=== PATIENT | female | born 1930 | race Caucasian/White ===

== ENCOUNTER 2016-05-09 09:59 | Inpatient (IN) ==
--- NOTE | 2016-05-09 10:22 | Emergency Department Note ---
Disposition Clinical Impression: Weakness, SARAHY (acute kidney injury) Failure to thrive Qualifiers: Failure to thrive age range: in adult Qualified Code(s): R62.7 - Adult failure to thrive Disposition: Admitted As Inpatient Condition: Fair Dizziness HPI - General Chief Complaint: ED Dizziness Stated Complaint: Dizzy, side pain Time Seen by Provider: 05/09/16 10:09 Source: patient Limitations: no limitations Nursing Notes Reviewed: Yes Vital Signs Reviewed: Yes - History of Present Illness HPI Narrative: 86-year-old female is brought to the emergency department for a chief complaint of dizziness and general malaise. The patient states for the past 2 days, she has felt dizzy upon standing, as well as experiencing generalized weakness and malaise. She states "I just do not feel good". The patient also complains of some right upper quadrant pain. The patient's family member in the room states that the patient is currently undergoing chemotherapy for pancreatic cancer. The patient's oncologist is Dr. Calabrese, here at the [facility]. The patient states that she has had a noticeably decreased oral intake over the past 3 days. She denies any fevers or chills. She denies any nausea or vomiting. She denies any diarrhea, however admits to being constipated. She states she has not had a bowel movement in 2 days and this is not normal for her. She denies any generalized myalgias. Pt Subjective Complaint: dizziness, weakness Onset (ago): day(s) (3) Timing: gradual onset Improves with: nothing Worsens with: nothing - Related Data Home Medications Medication Instructions Recorded Confirmed Aspirin 81 mg PO DAILY 03/18/16 05/09/16 Citalopram [CeleXA] 20 mg PO DAILY 03/18/16 05/09/16 Levothyroxine [Synthroid] 88 mcg PO DAILY 03/18/16 05/09/16 Metformin [Glucophage] 500 mg PO BID 03/18/16 05/09/16 Omeprazole [PriLOSEC] 40 mg PO DAILY 03/18/16 05/09/16 Pravastatin Sodium [Pravachol] 40 mg PO DAILY 03/18/16 05/09/16 Docusate [Colace] 100 mg PO DAILY PRN 05/09/16 05/09/16 Hydrochlorothiazide 12.5 mg PO Q48H 05/09/16 05/09/16 Loratadine [Claritin] 10 mg PO DAILY 05/09/16 05/09/16 Multivit-Min/Iron/Folic/Lutein 1 tab PO DAILY 05/09/16 05/09/16 [Centrum Silver Women Tablet] Previous Rx's Medication Instructions Recorded Lisinopril [Zestril] 20 mg PO DAILY #30 tablet 03/24/16 Ondansetron ODT [Zofran ODT] 4 mg SL Q6HR PRN #15 tab.rapdis 03/24/16 OxyCODONE Immed Rel [Roxicodone 5 5 mg PO Q6HR PRN #25 tablet 03/24/16 MG] Promethazine [Phenergan] 12.5 mg PO Q6HR PRN #30 tablet 03/24/16 Ondansetron HCl [Zofran] 4 mg PO Q6H PRN #30 tablet 04/11/16 Prochlorperazine Maleate 10 mg PO Q6HR #30 tablet 04/11/16 [Compazine] Allergies Allergy/AdvReac Type Severity Reaction Status Date / Time No Known Allergies Allergy Verified 03/28/16 07:55 All systems ED: reviewed and negative except as stated. Constitutional: Denies: fever, chills, weakness, weight change Cardiovascular: Denies: chest pain, palpitations, dyspnea on exertion, edema, syncope Respiratory: Denies: cough, dyspnea, wheezes, hemoptysis, stridor Gastrointestinal: Reports: as per HPI, abdominal pain. Denies: nausea, vomiting , diarrhea, constipation, hematemesis, melena, hematochezia Genitourinary: Denies: dysuria, frequency, hematuria, discharge Musculoskeletal: Denies: back pain, neck pain, arthralgia, myalgia Integumentary: Denies: rash, abrasion, lesions Neurological: Reports: as per HPI, weakness. Denies: headache, numbness, paresthesias, confusion, abnormal gait Psychiatric: Denies: anxiety, depression, suicidal thoughts, homicidal thoughts , auditory hallucinations, visual hallucinations Endocrine: Reports: as per HPI, fatigue. Denies: heat or cold intolerance, polydipsia, polyuria, other Past Medical History - Past Medical History Attestation: Yes The following information was validated with the patient. Source: patient Medical history: Reports: cancer, diabetes, GERD, hyperlipidemia, hypertension, thyroid disease, other Surgical history: Reports: no surgical history Psychiatric history: Reports: anxiety, depression - Social History Smoking Status: Never smoker Smokeless Tobacco Status: No Alcohol use: Reports: none Drug use: Reports: none Physical Exam - General Limitations: no limitations General appearance: alert, in no apparent distress - Head Head exam: atraumatic, normocephalic, normal inspection - Eye Eye exam: Present: normal appearance, PERRL, EOMI - ENT ENT exam: mucous membranes dry - Neck Neck exam: Present: normal inspection, full ROM, trachea midline. Absent: lymphadenopathy - Chest Chest inspection: Present: normal inspection, symmetric chest wall rise - Respiratory Respiratory exam: Present: normal lung sounds bilaterally. Absent: respiratory distress, wheezes, stridor, accessory muscle use, prolonged expiratory phase - Cardiovascular Cardiovascular exam: Present: regular rate, normal rhythm, normal heart sounds - Abdominal Exam Abdominal exam: Present: soft, Non-Tender, tenderness, normal bowel sounds. Absent: distention, guarding, rebound, rigidity Abdominal tenderness: Present: LLQ, mild - Extremities Exam Extremities exam: Present: normal inspection, full ROM. Absent: tenderness, pedal edema - Neurological Exam Neurological exam: Present: alert, oriented X3 - Psychiatric Psychiatric exam: Present: normal affect, normal mood - Skin Skin exam: Present: warm, dry, intact, normal color. Absent: rash, cyanosis, diaphoresis, erythema, pallor, mottled Course Vital Signs Temperature 98.2 F 05/09/16 10:03 Pulse Rate 113 05/09/16 10:03 Respiratory Rate 18 05/09/16 10:03 Blood Pressure 85/50 05/09/16 10:03 O2 Sat by Pulse Oximetry 98 05/09/16 10:03 Temperature 98.2 F 05/09/16 10:03 Pulse Rate 78 05/09/16 12:38 Respiratory Rate 16 05/09/16 12:48 Blood Pressure 112/48 05/09/16 12:48 O2 Sat by Pulse Oximetry 99 05/09/16 12:38 Oxygen Delivery Oxygen Delivery Room Air Dizziness - Lab Data Result diagrams: 05/09/16 10:35 05/09/16 10:35 Lab Results 05/09/16 05/09/16 05/09/16 Range/Units 10:35 10:35 10:35 WBC 11.2 H (4.3-11.1) K/mcL RBC 3.16 L (3.82-4.97) M/mcL Hgb 9.7 L (11.5-15.4) g/dL Hct 28.7 L (35.3-44.9) % MCV 90.8 (83.0-100.0) fL MCH 30.7 (28.0-33.3) pg MCHC 33.8 (31.6-35.5) g/dL RDW 14.8 H (11.5-14.5) % Plt Count 133 L (140-400) K/mcL MPV 10.1 (9.4-12.4) fL Immature Gran % 0.5 (0-4) % Seg Neutrophils % 83.0 % Lymphocytes % 9.5 % Monocytes % 6.9 % Eosinophils % 0.0 % Basophils % 0.1 % Neutrophils # 9.3 H (1.6-8.9) K/mcL Lymphocytes # 1.1 (0.6-4.6) K/mcL Monocytes # 0.8 (0.0-1.3) K/mcL Eosinophils # 0.0 (0.0-0.6) K/mcL Basophils # 0.0 (0.0-0.2) K/mcL PT 16.5 H (9.4-12.1) Seconds INR 1.5 Sodium 131 L (136-145) mEq/L Potassium 4.3 (3.5-4.5) mEq/L Chloride 98 (98-109) mEq/L Carbon Dioxide 20 (19-29) mEq/L BUN 22 H (7-20) mg/dL Creatinine 1.30 H (0.57-1.11) mg/dL Est GFR ( Amer) 47 L (> 60) Est GFR (Non-Af Amer) 39 L (> 60) BUN/Creatinine Ratio 17 (6-26) Glucose 224 H (70-99) mg/dL Calculated Osmolality 282 (280-300) Calcium 9.2 (8.6-10.8) mg/dL Troponin I (0-0.03) ng/mL 05/09/16 Range/Units 10:35 WBC (4.3-11.1) K/mcL RBC (3.82-4.97) M/mcL Hgb (11.5-15.4) g/dL Hct (35.3-44.9) % MCV (83.0-100.0) fL MCH (28.0-33.3) pg MCHC (31.6-35.5) g/dL RDW (11.5-14.5) % Plt Count (140-400) K/mcL MPV (9.4-12.4) fL Immature Gran % (0-4) % Seg Neutrophils % % Lymphocytes % % Monocytes % % Eosinophils % % Basophils % % Neutrophils # (1.6-8.9) K/mcL Lymphocytes # (0.6-4.6) K/mcL Monocytes # (0.0-1.3) K/mcL Eosinophils # (0.0-0.6) K/mcL Basophils # (0.0-0.2) K/mcL PT (9.4-12.1) Seconds INR Sodium (136-145) mEq/L Potassium (3.5-4.5) mEq/L Chloride (98-109) mEq/L Carbon Dioxide (19-29) mEq/L BUN (7-20) mg/dL Creatinine (0.57-1.11) mg/dL Est GFR ( Amer) (> 60) Est GFR (Non-Af Amer) (> 60) BUN/Creatinine Ratio (6-26) Glucose (70-99) mg/dL Calculated Osmolality (280-300) Calcium (8.6-10.8) mg/dL Troponin I 0.01 (0-0.03) ng/mL S.B.A.R. - S.B.A.R. Transition of Care: I have discussed this patient's case with Dr. Grant. At this time, Dr. Grant will assume care of this patient due to the mid-level shift change. Situation: Demographics, MOA Background: Presenting Complaint, Relevant PMH, Meds, & Allergies Assessment: Vital Signs, Course and respsone to treatment, Exam Concerns, Patient/Family Expectation, Pertinant Lab Results, Outstanding Labs Recommendation: Barrier(s) to disposition, Recommendation based on pending studies, treatments, or consults S.B.A.R. Report Given to: Dr. Grant S.B.A.R. Repor Time: 11:00
[2016-05-09] MEDS ORDERED: 0.9 % Sodium Chloride 500 ML IVC ONE (10:26)
[2016-05-09 10:43] LABS: Basophils % 0.1 %; Hematocrit 28.7 % (35.3-44.9); Hemoglobin 9.7 g/dL (11.5-15.4); Immature Granulocytes % 0.5 % (0-4); Lymphocytes # 1.1 K/mcL (0.6-4.6); Lymphocytes % 9.5 %; Mean Corpuscular HGB Conc 33.8 g/dL (31.6-35.5); Mean Corpuscular Hemoglobin 30.7 pg (28.0-33.3); Mean Corpuscular Volume 90.8 fL (83.0-100.0); Mean Platelet Volume 10.1 fL (9.4-12.4); Monocytes # 0.8 K/mcL (0.0-1.3); Monocytes % 6.9 %; Neutrophils # 9.3 K/mcL (1.6-8.9); Platelet Count 133 K/mcL (140-400); Red Blood Count 3.16 M/mcL (3.82-4.97); Red Cell Distribution Width 14.8 % (11.5-14.5)
[2016-05-09 10:55] LABS: Calcium 9.2 mg/dL (8.6-10.8); Potassium 4.3 mEq/L (3.5-4.5)
[2016-05-09 10:57] LABS: INR 1.5; Prothrombin Time 16.5 Seconds (9.4-12.1)
--- NOTE | 2016-05-09 11:15 | Emergency Department Note ---
START Narrative - START START: I examined this patient and my medical decision-making was reviewed with the PULPER OPERATOR/PA/Advanced Practice Nurse/Resident Physician. I agree with the documented findings, disposition and treatment plan as described except to the extent set forth below. ED attending note: Patient seen with emergency medicine resident Dr. Mixon. We independently evaluated the patient. We independently had [id number] contact with the patient. Please see a copy of his note for details of the history and physical, evaluation, management and disposition of this emergency Department patient. Briefly: A 86-year-old female diagnosed with stage II pancreatic cancer. Patient declines surgical procedure. Patient is getting palliative care at [facility]. His been feeling tired for the past week or so. She spell. Hemoglobin is only 9.6 and not a big drops and she last got transfused in March. Results of the x-rays and urinalysis. Due to the patient's weakness and weight loss patient will be admitted for failure to thrive. Disposition pending. Patient stable.
--- NOTE | 2016-05-09 11:17 | Emergency Department Note ---
Disposition Clinical Impression: Weakness, SARAHY (acute kidney injury) Failure to thrive Qualifiers: Failure to thrive age range: in adult Qualified Code(s): R62.7 - Adult failure to thrive Disposition: Admitted As Inpatient Condition: Fair Time of Disposition: 11:59 General Adult HPI - General Chief complaint: ED Dizziness Stated complaint: Dizzy, side pain Time Seen by Provider: 05/09/16 10:09 Source: patient Limitations: no limitations - History of Present Illness Pain Scale: 6 - Related Data Home Medications Medication Instructions Recorded Confirmed Aspirin 81 mg PO DAILY 03/18/16 05/09/16 Citalopram [CeleXA] 20 mg PO DAILY 03/18/16 05/09/16 Levothyroxine [Synthroid] 88 mcg PO DAILY 03/18/16 05/09/16 Metformin [Glucophage] 500 mg PO BID 03/18/16 05/09/16 Omeprazole [PriLOSEC] 40 mg PO DAILY 03/18/16 05/09/16 Pravastatin Sodium [Pravachol] 40 mg PO DAILY 03/18/16 05/09/16 Docusate [Colace] 100 mg PO DAILY PRN 05/09/16 05/09/16 Hydrochlorothiazide 12.5 mg PO Q48H 05/09/16 05/09/16 Loratadine [Claritin] 10 mg PO DAILY 05/09/16 05/09/16 Multivit-Min/Iron/Folic/Lutein 1 tab PO DAILY 05/09/16 05/09/16 [Centrum Silver Women Tablet] Previous Rx's Medication Instructions Recorded Lisinopril [Zestril] 20 mg PO DAILY #30 tablet 03/24/16 Ondansetron ODT [Zofran ODT] 4 mg SL Q6HR PRN #15 tab.rapdis 03/24/16 OxyCODONE Immed Rel [Roxicodone 5 5 mg PO Q6HR PRN #25 tablet 03/24/16 MG] Promethazine [Phenergan] 12.5 mg PO Q6HR PRN #30 tablet 03/24/16 Ondansetron HCl [Zofran] 4 mg PO Q6H PRN #30 tablet 04/11/16 Prochlorperazine Maleate 10 mg PO Q6HR #30 tablet 04/11/16 [Compazine] Allergies Allergy/AdvReac Type Severity Reaction Status Date / Time No Known Allergies Allergy Verified 03/28/16 07:55 Constitutional: Denies: fever, chills, weakness, weight change Cardiovascular: Denies: chest pain, palpitations, dyspnea on exertion, edema, syncope Respiratory: Denies: cough, dyspnea, wheezes, hemoptysis, stridor Gastrointestinal: Reports: as per HPI, abdominal pain. Denies: nausea, vomiting , diarrhea, constipation, hematemesis, melena, hematochezia Genitourinary: Denies: dysuria, frequency, hematuria, discharge Musculoskeletal: Denies: back pain, neck pain, arthralgia, myalgia Integumentary: Denies: rash, abrasion, lesions Neurological: Reports: as per HPI, weakness. Denies: headache, numbness, paresthesias, confusion, abnormal gait Psychiatric: Denies: anxiety, depression, suicidal thoughts, homicidal thoughts , auditory hallucinations, visual hallucinations Endocrine: Reports: as per HPI, fatigue. Denies: heat or cold intolerance, polydipsia, polyuria, other Past Medical History - Past Medical History Medical history: Reports: cancer, diabetes, GERD, hyperlipidemia, hypertension, thyroid disease, other Surgical history: Reports: no surgical history Psychiatric history: Reports: anxiety, depression - Social History Smoking Status: Never smoker Smokeless Tobacco Status: No Alcohol use: Reports: none Drug use: Reports: none Physical Exam - General Limitations: no limitations General appearance: alert, in no apparent distress Course - Reevaluation(s) Reevaluation #1: 86-year-old female presents to the emergency department for progressive weakness and failure to thrive. Patient has a history of pancreatic cancer currently on palliative chemotherapy. Family states that the patient has not been eating and has had progressive weight loss over the past few months but has gotten recently worse over the past week. This state that the patient has not been eating or drinking. States that she has been having trouble with bowel movements and states that this is somewhat related to her diagnosis of pancreatic cancer. Currently the patient states she feels weak and dizzy. Labs show worsening creatinine which is up 1.3. Chest x-ray and urinalysis pending. Patient be admitted for further evaluation and palliative care. Time: 11:17 Reevaluation #2: Discussed case with hospitalist service. Patient accepted for further evaluation and treatment. Time: 11:58 Vital Signs Temperature 98.2 F 05/09/16 10:03 Pulse Rate 113 05/09/16 10:03 Respiratory Rate 18 05/09/16 10:03 Blood Pressure 85/50 05/09/16 10:03 O2 Sat by Pulse Oximetry 98 05/09/16 10:03 Temperature 98.2 F 05/09/16 10:03 Pulse Rate 78 05/09/16 12:38 Respiratory Rate 18 05/09/16 12:38 Blood Pressure 112/48 05/09/16 12:38 O2 Sat by Pulse Oximetry 99 05/09/16 12:38 Oxygen Delivery Oxygen Delivery Room Air Medical Decision Making - Medical Records Medical records reviewed: Yes I reviewed the patient's medical records. - Lab Data Lab results reviewed: Yes I reviewed the patient's lab results. Result diagrams: 05/09/16 10:35 05/09/16 10:35 Lab Results 05/09/16 05/09/16 05/09/16 Range/Units 10:35 10:35 10:35 WBC 11.2 H (4.3-11.1) K/mcL RBC 3.16 L (3.82-4.97) M/mcL Hgb 9.7 L (11.5-15.4) g/dL Hct 28.7 L (35.3-44.9) % MCV 90.8 (83.0-100.0) fL MCH 30.7 (28.0-33.3) pg MCHC 33.8 (31.6-35.5) g/dL RDW 14.8 H (11.5-14.5) % Plt Count 133 L (140-400) K/mcL MPV 10.1 (9.4-12.4) fL Immature Gran % 0.5 (0-4) % Seg Neutrophils % 83.0 % Lymphocytes % 9.5 % Monocytes % 6.9 % Eosinophils % 0.0 % Basophils % 0.1 % Neutrophils # 9.3 H (1.6-8.9) K/mcL Lymphocytes # 1.1 (0.6-4.6) K/mcL Monocytes # 0.8 (0.0-1.3) K/mcL Eosinophils # 0.0 (0.0-0.6) K/mcL Basophils # 0.0 (0.0-0.2) K/mcL PT 16.5 H (9.4-12.1) Seconds INR 1.5 Sodium 131 L (136-145) mEq/L Potassium 4.3 (3.5-4.5) mEq/L Chloride 98 (98-109) mEq/L Carbon Dioxide 20 (19-29) mEq/L BUN 22 H (7-20) mg/dL Creatinine 1.30 H (0.57-1.11) mg/dL Est GFR ( Amer) 47 L (> 60) Est GFR (Non-Af Amer) 39 L (> 60) BUN/Creatinine Ratio 17 (6-26) Glucose 224 H (70-99) mg/dL Calculated Osmolality 282 (280-300) Calcium 9.2 (8.6-10.8) mg/dL Troponin I (0-0.03) ng/mL 05/09/16 Range/Units 10:35 WBC (4.3-11.1) K/mcL RBC (3.82-4.97) M/mcL Hgb (11.5-15.4) g/dL Hct (35.3-44.9) % MCV (83.0-100.0) fL MCH (28.0-33.3) pg MCHC (31.6-35.5) g/dL RDW (11.5-14.5) % Plt Count (140-400) K/mcL MPV (9.4-12.4) fL Immature Gran % (0-4) % Seg Neutrophils % % Lymphocytes % % Monocytes % % Eosinophils % % Basophils % % Neutrophils # (1.6-8.9) K/mcL Lymphocytes # (0.6-4.6) K/mcL Monocytes # (0.0-1.3) K/mcL Eosinophils # (0.0-0.6) K/mcL Basophils # (0.0-0.2) K/mcL PT (9.4-12.1) Seconds INR Sodium (136-145) mEq/L Potassium (3.5-4.5) mEq/L Chloride (98-109) mEq/L Carbon Dioxide (19-29) mEq/L BUN (7-20) mg/dL Creatinine (0.57-1.11) mg/dL Est GFR ( Amer) (> 60) Est GFR (Non-Af Amer) (> 60) BUN/Creatinine Ratio (6-26) Glucose (70-99) mg/dL Calculated Osmolality (280-300) Calcium (8.6-10.8) mg/dL Troponin I 0.01 (0-0.03) ng/mL - Radiology Data Radiology results reviewed: Yes I reviewed the patient's radiology results. - EKG Data EKG #1 EKG attestation: Yes I reviewed and interpreted this EKG. EKG shows normal: sinus rhythm Rate: normal Rhythm: NSR [place]/QRS: normal Interpretation: no acute changes
--- NOTE | 2016-05-09 13:09 | Internal Med History&Physical ---
Date of Encounter: 05/09/16 Time of Encounter: 13:06 Assessment and Plan (1) Failure to thrive Current visit: Yes Status: Acute Patient with history of pancreatic cancer on Chemotherapy. Admitted Due To failure to thrive, subsequent Dehydration, SARAHY and Worsening Anemia. We Will Continue with IV Fluids, Symptomatic Therapy. We Will Obtain a Consultation with Our Oncology team for Further Recommendations. The Patient's CODE STATUS to DNR/DNI Comfort Care. Pain Control. DVT Prophylaxis. Aspiration Precautions. Monitor Kidney Function Tests and Hemoglobin Tomorrow in A.M. The Plan of Care Was Discussed in Detail with the Patient and her daughter who was at Bedside. Qualifiers: Failure to thrive age range: in adult Qualified Code(s): R62.7 - Adult failure to thrive (2) SARAHY (acute kidney injury) Current visit: Yes Status: Acute (3) Pancreatic cancer Current visit: Yes Status: Acute Qualifiers: Pancreatic malignancy location: unspecified Qualified Code(s): C25.9 - Malignant neoplasm of pancreas, unspecified (4) Anemia Current visit: No Status: Acute Qualifiers: Anemia type: unspecified type Qualified Code(s): D64.9 - Anemia, unspecified (5) DVT prophylaxis Current visit: No Status: Acute Internal Medicine - H&P: HPI Chief complaint: Generalized weakness, dizziness Admitted From: Emergency Dept Plans for Post Hospital Care: Home History of present illness: Ms. Montero is a 86 year old female past medical history diabetes, hypertension , GERD, hypothyroidism, pancreatic cancer diagnosed in March 2016. She is undergoing chemotherapy, her oncologist is Dr. Calabrese. The patient presented to our emergency department complaining of progressive weakness, dizziness, poor oral intake. She denies recent trauma, loss of consciousness, fever, chest pain , shortness of breath. She was seen and examined at bedside, her daughter was present during this encounter. She was initially evaluated in our emergency department, she was found to have a drop in her hemoglobin from 13.2-9.7, additionally some acute kidney injury. Her chest x-ray was essentially unremarkable. The patient was admitted for further management and workup. The patient states that her CODE STATUS is DNR/DNI comfort care. Past Med Surg Social Fam HX - Past Medical History Medical history: cancer, diabetes, GERD, hyperlipidemia, hypertension, thyroid disease, other Psychiatric history: anxiety, depression - Past Surgical History Surgical History: no surgical history - Social History Smoking Status: Never smoker Smokeless Tobacco Status: No Alcohol use: none Drug use: none - Family History Mother Hx Family Cardiac Disorders: Yes (stroke) Father Living Status: Internal Medicine - H&P: Meds Aspirin 81 mg PO DAILY 03/18/16 [History] Citalopram [CeleXA] 20 mg PO DAILY 03/18/16 [History] Levothyroxine [Synthroid] 88 mcg PO DAILY 03/18/16 [History] Metformin [Glucophage] 500 mg PO BID 03/18/16 [History] Omeprazole [PriLOSEC] 40 mg PO DAILY 03/18/16 [History] Pravastatin Sodium [Pravachol] 40 mg PO DAILY 03/18/16 [History] Lisinopril [Zestril] 20 mg PO DAILY #30 tablet 03/24/16 [Rx] Ondansetron ODT [Zofran ODT] 4 mg SL Q6HR PRN #15 tab.rapdis 03/24/16 [Rx] OxyCODONE Immed Rel [Roxicodone 5 MG] 5 mg PO Q6HR PRN #25 tablet 03/24/16 [Rx] Promethazine [Phenergan] 12.5 mg PO Q6HR PRN #30 tablet 03/24/16 [Rx] Ondansetron HCl [Zofran] 4 mg PO Q6H PRN #30 tablet 04/11/16 [Rx] Prochlorperazine Maleate [Compazine] 10 mg PO Q6HR #30 tablet 04/11/16 [Rx] Docusate [Colace] 100 mg PO DAILY PRN 05/09/16 [History] Hydrochlorothiazide 12.5 mg PO Q48H 05/09/16 [History] Loratadine [Claritin] 10 mg PO DAILY 05/09/16 [History] Multivit-Min/Iron/Folic/Lutein [Centrum Silver Women Tablet] 1 tab PO DAILY 09/17 [History] Allergies No Known Allergies Allergy (Verified 03/28/16 07:55) All Systems PM: A 10-system review of systems was performed and is negative for pertinent findings except as documented above in the HPI. - Constitutional Constitutional: anorexia, fatigue, lethargy, malaise, weight loss, no chills, no fever(s), no night sweats - EENT Eyes: as per HPI, no change in vision, no discharge, no pain, no photophobia Ears: as per HPI, no ear discharge, no ear pain, no tinnitus Nose, mouth and throat: as per HPI, no dysphagia, no nasal discharge, no neck pain, no sore throat - Breasts Breasts: as per HPI - Cardiovascular Cardiovascular ROS IM: as per HPI, no chest pain, no diaphoresis, no dyspnea, no lightheadedness, no palpitations, no syncope - Respiratory Respiratory: as per HPI, no cough, no dyspnea, no wheezing, no excessive phlegm production - Gastrointestinal Gastrointestinal: as per HPI, no abdominal pain, no diarrhea, no hematemesis, no hematochezia, no melena, no nausea, no vomiting - Genitourinary Genitourinary: as per HPI, no change in urinary stream, no dysuria, no flank pain, no hematuria Menstruation: as per HPI - Musculoskeletal Musculoskeletal ROS IM: as per HPI, no numbness, no tingling - Integumentary Integumentary IM: as per HPI, no rash, no unusual bruising - Neurological Neurological ROS: as per HPI, no confusion, no convulsions, no focal weakness, no numbness, no tingling, no tremor(s) - Psychiatric Psychiatric: as per HPI - Endocrine Endocrine IM: as per HPI - Hematologic/Lymphatic Hematologic/Lymphatic: as per HPI, no easy bruising - Allergic/Immunologic Allergic/Immunologic: as per HPI - Constitutional Vitals: Temp Pulse Resp BP Pulse Ox 98.2 F 78 16 112/48 99 05/09/16 10:03 05/09/16 12:38 05/09/16 12:48 05/09/16 12:48 05/09/16 12:38 General appearance: Present: A&O X 3, pleasant, underweight - Head Head exam: Present: atraumatic, normocephalic - Eye Eye exam: Present: PERRL, scleral icterus, conjuntiva pink Pupils: Present: PERRL - Neck Neck exam general surgery: Present: supple, trachea midline. Absent: lymphadenopathy - Respiratory Respiratory exam: Present: CTAB. Absent: accessory muscle use, rales, rhonchi, wheezes - Cardiovascular Cardiovascular exam: Present: RRR, +S1, +S2. Absent: diastolic murmur, gallop, rubs, systolic murmur - GI/Abdominal GI/Abdominal exam: Present: normal bowel sounds, soft, no peritoneal signs. Absent: distended, tenderness - Extremities Exam Extremities exam: Present: warm, radial pulses palpable and symetrical. Absent : calf tenderness, cyanotic, pedal edema - Neurological Exam Neurological exam: Present: CN II-XII intact, oriented X3, no focal deficits. Absent: pronater drift, facial droop, speech deficit - Skin Skin exam: Present: dry, intact Internal Med - H&P Results - Labs CBC & Chem 7: 05/09/16 10:35 05/09/16 10:35
[2016-05-09] MEDS ORDERED: Naloxone 0.4 MG/ML INJ IVP PRN (13:21)
[2016-05-09] MEDS ORDERED: *HR* Morphine 2 MG/ML SYRINGE IVP PRN (13:21)
[2016-05-09] MEDS ORDERED: *HR* HYDROcodone/Acet 5/325 mg TABLET PO PRN (13:21)
[2016-05-09] MEDS ORDERED: Acetaminophen 325 MG TABLET PO PRN (13:21)
[2016-05-09] MEDS ORDERED: Ondansetron 4 MG/2 ML VIAL IVP PRN (13:21)
[2016-05-09] MEDS: Ringers Solution, Lactated 1,000 ML IVC SCH (13:59)
--- NOTE | 2016-05-09 18:15 | Oncology Inp Consult Note ---
Date of Encounter: 05/09/16 Time of Encounter: 16:00 - Data of Consult Requesting Physician: Barbara Quispe Primary Care Provider: Chaz Puckett - Consult Narrative Reason for consult: Pancreatic cancer History of present illness: Ms. Montero is a 86 year old female with history of pancreatic cancer, admitted today with symptoms of poor oral intake, weakness, pain in the lower back and failure to thrive. Daughter at the bedside reports that her last chemotherapy was about 10 days ago and she has tolerated it well. She has not had any nausea or vomiting but has had chronic anorexia resulting in poor by mouth intake. The daughter does report that the patient is able to drink water and keep it down. Oncology has been consulted for her history of pancreatic cancer. Her oncologic history dates back to March 2016 when she was noted to have hyperbilirubinemia and elevated liver function tests. Imaging showed a lesion at the head of the pancreas. She underwent endoscopy, ERCP with stent placement which was later internalized. Patient was evaluated at [facility] and since she was not a surgical candidate, although the tumor was resectable, the recommendation was to consider palliative versus neoadjuvant chemotherapy followed by evaluation. She has been started on gemcitabine every other week and may have received about 1-2 doses so far. Imaging was to be obtained after 3-4 cycles of treatment. Her other medical problems include diabetes mellitus, hypertension, GERD, thyroid disorder. The patient today reported that she has been doing better. The pain in the lower back is also better. She had been taking Aleve at home. Assessment and plan: Pancreatic adenocarcinoma: Clinically resectable but due to comorbidities and nutritional status, the patient is not a surgical candidate. She is getting palliative Gemzar and seems to be tolerating it well. We will proceed with imaging after about 3 cycles of chemotherapy. Agree with palliative care consult given the declining nutritional status and failure to thrive. Dehydration: The patient presented with acute kidney injury. She is receiving IV fluids. Anemia: Multifactorial and could be due to chemotherapy, underlying malignancy and chronic inflammation. Quadrant neuropathy: Elevation of PT and INR could be secondary to liver dysfunction. We will continue to monitor. Past Med Surg Social Fam HX - Past Medical History Medical history: cancer, diabetes, GERD, hyperlipidemia, hypertension, thyroid disease, other Psychiatric history: anxiety, depression - Past Surgical History Surgical History: no surgical history - Social History Smoking Status: Never smoker Smokeless Tobacco Status: No Alcohol use: none Drug use: none - Family History Mother Hx Family Cardiac Disorders: Yes (stroke) Father Living Status: Medications and Allergies Aspirin 81 mg PO DAILY 03/18/16 [History] Citalopram [CeleXA] 20 mg PO DAILY 03/18/16 [History] Levothyroxine [Synthroid] 88 mcg PO DAILY 03/18/16 [History] Metformin [Glucophage] 500 mg PO BID 03/18/16 [History] Omeprazole [PriLOSEC] 40 mg PO DAILY 03/18/16 [History] Pravastatin Sodium [Pravachol] 40 mg PO DAILY 03/18/16 [History] Lisinopril [Zestril] 20 mg PO DAILY #30 tablet 03/24/16 [Rx] Ondansetron ODT [Zofran ODT] 4 mg SL Q6HR PRN #15 tab.rapdis 03/24/16 [Rx] OxyCODONE Immed Rel [Roxicodone 5 MG] 5 mg PO Q6HR PRN #25 tablet 03/24/16 [Rx] Promethazine [Phenergan] 12.5 mg PO Q6HR PRN #30 tablet 03/24/16 [Rx] Ondansetron HCl [Zofran] 4 mg PO Q6H PRN #30 tablet 04/11/16 [Rx] Prochlorperazine Maleate [Compazine] 10 mg PO Q6HR #30 tablet 04/11/16 [Rx] Docusate [Colace] 100 mg PO DAILY PRN 05/09/16 [History] Hydrochlorothiazide 12.5 mg PO Q48H 05/09/16 [History] Loratadine [Claritin] 10 mg PO DAILY 05/09/16 [History] Multivit-Min/Iron/Folic/Lutein [Centrum Silver Women Tablet] 1 tab PO DAILY 09/17 [History] Allergies No Known Allergies Allergy (Verified 03/28/16 07:55) Constitutional: Present: anorexia, daytime sleepiness, lethargy, malaise, weakness, weight loss Eyes: Present: blurry vision Cardiovascular: Present: edema, palpitations Respiratory: Present: cough, dyspnea Gastrointestinal: Present: early satiety Oncology - Exam - Constitutional Vitals: Temp Pulse Resp BP Pulse Ox 97.7 F 78 16 104/52 96 02/06/17 13:40 05/09/16 13:40 05/09/16 13:40 05/09/16 13:40 05/09/16 13:40 General appearance: cooperative, mild distress, thin - Head Head exam: Present: atraumatic, normal inspection, normocephalic - Eye Eye exam: Present: EOMI, PERRL - ENT ENT exam: Present: mucous membranes dry, normal oropharynx - Neck Neck exam: Present: full ROM - Respiratory Respiratory exam: Present: decreased breath sounds - Cardiovascular Cardiovascular exam: Present: RRR, +S1, +S2 - GI/Abdominal GI/Abdominal exam: Present: diminished bowel sounds, firm, normal bowel sounds - Extremities Exam Extremities exam: Present: normal inspection - Neurological Exam Neurological exam: Present: alert, altered, oriented X3, no focal deficits Consult Discharge Plan - Plan Referrals: Chaz Puckett DO [Primary Care Provider] -
[2016-05-09] MEDS: *HR* Heparin 5,000 UNIT/ML VIAL SQ SCH (18:46)
[2016-05-09] MEDS: Famotidine 20 MG/2 ML VIAL IVP SCH (18:46)
[2016-05-10] MEDS: Ringers Solution, Lactated 1,000 ML IVC SCH (00:30)
[2016-05-10 01:44] LABS: Bilirubin,Urine Large (Negative); Blood,Urine Negative (Negative); Clarity,Urine Cloudy (Clear); Color,Urine Orange (Yellow); Glucose,Urine (UA) 100 mg/dL (Normal); Ketones,Urine Negative (Negative); Leukocyte Esterase,Urine Small (Negative); Nitrite,Urine Negative (Negative); PH,Urine 5.5 pH Units (5.0-8.0); Protein,Urine 30 mg/dL (Neg-Trace); Specific Gravity,Urine 1.019 (1.010-1.025)
[2016-05-10 01:47] LABS: Hyaline Casts,Urine Few per lpf (None-Few); Squamous Epithelial Cell,Urine Many per lpf (None-Few)
[2016-05-10 02:00] LABS: Mucus,Urine Few (Few); RBC,Urine 0-3 per hpf (0-3)
[2016-05-10 02:01] LABS: Bacteria,Urine Moderate per hpf (None-Few); Oval Fat Bodies,Urine Present (Not Present)
[2016-05-10] MEDS: *HR* Heparin 5,000 UNIT/ML VIAL SQ SCH ×2 (06:12→23:07)
[2016-05-10] MEDS: Famotidine 20 MG/2 ML VIAL IVP SCH ×2 (06:18→18:50)
[2016-05-10 06:50] LABS: Hematocrit 26.5 % (35.3-44.9); Hemoglobin 8.7 g/dL (11.5-15.4); Mean Corpuscular HGB Conc 32.8 g/dL (31.6-35.5); Mean Corpuscular Hemoglobin 30.1 pg (28.0-33.3); Mean Corpuscular Volume 91.7 fL (83.0-100.0); Mean Platelet Volume 10.2 fL (9.4-12.4); Platelet Count 121 K/mcL (140-400); Red Blood Count 2.89 M/mcL (3.82-4.97)
[2016-05-10 07:06] LABS: BUN/Creatinine Ratio 19 (6-26); Blood Urea Nitrogen 19 mg/dL (7-20); Calcium 8.5 mg/dL (8.6-10.8); Carbon Dioxide 22 mEq/L (19-29); Chloride 100 mEq/L (98-109); Glucose 128 mg/dL (70-99); Magnesium 0.8 mg/dL (1.6-2.6); Osmolality,Calculated 276 (280-300); Sodium 131 mEq/L (136-145); eGFR For African Americans > 60 (> 60); eGFR For Non-African Americans 54 (> 60)
[2016-05-10] MEDS: Aspirin 81 MG TAB.CHEW PO SCH (07:58)
[2016-05-10 08:16] LABS: Lymphocytes # 0.8 K/mcL (0.6-4.6); Monocytes # 0.6 K/mcL (0.0-1.3); Neutrophils # 6.3 K/mcL (1.6-8.9)
[2016-05-10 08:17] LABS: Platelet Estimate Normal (Normal)
--- NOTE | 2016-05-10 11:18 | Palliative - Consult Note ---
Date of Encounter: 05/10/16 Time of Encounter: 10:30 - Assessment and Plan (1) SARAHY (acute kidney injury) Current Visit: Yes Status: Acute Assessment and plan: Improving continue to watch, urine appears to be contaminated. (2) Failure to thrive Current Visit: Yes Status: Acute Assessment and plan: Discussed with patient about eating. We will put in a palliative consult to dietary, will try Megace, consider mirtazapine but the patient's already on Celexa. Even that the patient's problem with eating is that food does not taste good i had doubt that medications will make much difference. The patient did allow me to put in a consult to dietary E if there is anything they may be over marcie stevenson Qualifiers: Failure to thrive age range: in adult Qualified Code(s): R62.7 - Adult failure to thrive (3) Goals of care, counseling/discussion Current Visit: Yes Status: Acute Assessment and plan: The patient is currently DNR comfort care, no changes anticipated his goals of care she does wish to continue chemotherapy or her pancreatic cancer. She does understand that this is palliative in nature. She does not wish to discuss hospice at this time. We will follow from a distance as the patient's pain is well-controlled at this time whether we will also try some Megace for appetite. I did note to the patient that it will not in all likelihood change how things taste, and that is the major problem therefore leave this is worth a try but may not be too successful. (4) Pancreatic cancer Current Visit: Yes Status: Acute Assessment and plan: She reports that cancer related pain is under good control, she wishes to continue full aggressive care. She was offered an opportunity to have a rest from it for a short period of time she told Dr. Xuan stevenson that she wanted to continue to get her chemotherapy aggressively. To have no break. Qualifiers: Pancreatic malignancy location: unspecified Qualified Code(s): C25.9 - Malignant neoplasm of pancreas, unspecified (5) Constipation Current Visit: Yes Status: Acute Assessment and plan: The patient reports no bowel movement in several days. We will go ahead and start senna plus Dulcolax suppositories as needed and continue to watch. Qualifiers: Constipation type: slow transit constipation Qualified Code(s): K59.01 - Slow transit constipation Palliative-CN HPI - Data of Consult Patient: new to practice Requesting Physician: Caesar Ivy MD Primary Care Provider: Chaz Puckett - Consult Narrative Palliative Care/Comfort Measures: Palliative care Reason for consult: Goals of care, History of present illness: Ms. Montero is a 86 year old female History of cancer discovered in March of last year. Patient was admitted for weakness dizziness and poor oral intake. She was found to have a drop in her hemoglobin from 13 to data 9.7 and some kidney injury. Chest x-ray was unremarkable and patient Wishes DNR comfort care. Patient does describe the pain that she had initially as being a very deep ache that radiated across the upper part of her abdomen. And when this was diagnosed back in March it was felt that it was possibly due to gallstones. Relief diagnosed with pancreatic cancer and has been undergoing treatment for it since. Patient states she has been having trouble with her appetite since before the diagnosis was made, with that with food tasting like cardboard. She states that since food does not have any good taste she does not feel any real need to eat. He states the medications are working well for her pain and she feels that it is under good control. Since she has been able to tolerate her chemotherapy and feels that it is helping her and she wishes to continue with it. At its worst the pain is rated as a 7-8/10 which again is well controlled with medications. It is across the upper part of her abdomen and radiates all the way across. Nothing in particular provokes or relieves it. It lasts for a few minutes and then goes away but at times it can last for hours. Do help. There are no associated signs or symptoms with it specifically no nausea vomiting or diarrhea. Although at times she does have some trouble with nausea. CC: Casear vIy MD Weakness, no appetite Past Med Surg Social Fam HX - Past Medical History Medical history: cancer, diabetes, GERD, hyperlipidemia, hypertension, thyroid disease, other Psychiatric history: anxiety, depression - Past Surgical History Surgical History: no surgical history - Social History Smoking Status: Never smoker Smokeless Tobacco Status: No Alcohol use: none Drug use: none - Family History Mother Hx Family Cardiac Disorders: Yes (stroke) Father Living Status: Medications and Allergies Aspirin 81 mg PO DAILY 03/18/16 [History] Citalopram [CeleXA] 20 mg PO DAILY 03/18/16 [History] Levothyroxine [Synthroid] 88 mcg PO DAILY 03/18/16 [History] Metformin [Glucophage] 500 mg PO BID 03/18/16 [History] Omeprazole [PriLOSEC] 40 mg PO DAILY 03/18/16 [History] Pravastatin Sodium [Pravachol] 40 mg PO DAILY 03/18/16 [History] Lisinopril [Zestril] 20 mg PO DAILY #30 tablet 03/24/16 [Rx] Ondansetron ODT [Zofran ODT] 4 mg SL Q6HR PRN #15 tab.rapdis 03/24/16 [Rx] OxyCODONE Immed Rel [Roxicodone 5 MG] 5 mg PO Q6HR PRN #25 tablet 03/24/16 [Rx] Promethazine [Phenergan] 12.5 mg PO Q6HR PRN #30 tablet 03/24/16 [Rx] Ondansetron HCl [Zofran] 4 mg PO Q6H PRN #30 tablet 04/11/16 [Rx] Prochlorperazine Maleate [Compazine] 10 mg PO Q6HR #30 tablet 04/11/16 [Rx] Docusate [Colace] 100 mg PO DAILY PRN 05/09/16 [History] Hydrochlorothiazide 12.5 mg PO Q48H 05/09/16 [History] Loratadine [Claritin] 10 mg PO DAILY 05/09/16 [History] Multivit-Min/Iron/Folic/Lutein [Centrum Silver Women Tablet] 1 tab PO DAILY 09/17 [History] Allergies No Known Allergies Allergy (Verified 03/28/16 07:55) - Constitutional Constitutional ROS PAL: decreased appetite, anorexia, no chills, no fatigue - EENT Eyes: no dry eye, no loss of vision, no pain Ears: no ear discharge, no ear pain Ears, nose, mouth, throat: no facial pain, no hoarseness, no neck mass, no neck pain - Cardiovascular Cardiovascular ROS: no chest pain, no chest pain at rest - Respiratory Respiratory: no cough, no dyspnea, no hemoptysis - Gastrointestinal Gastrointestinal: constipation, no diarrhea, no nausea, no vomiting - Genitourinary Palliative ROS female: no urinary frequency, no urinary hesitancy, no urinary incontinence - Musculoskeletal Musculoskeletal ROS IM: arthralgias, back pain - Integumentary ROS Integumentary: no skin pain, no sores - Neurological Neurological ROS: no frequent falls, no headache(s), no lack of coordination, no sensory deficit - Psychiatric Psychiatric general PM: no behavioral changes, no difficulty concentrating, no homicidal ideation, no suicidal ideation - Endocrine Endocrine IM: other (Positive for both diabetes and thyroid) Palliative Care-Exam - Constitutional Vitals: Temp Pulse Resp BP Pulse Ox 99.6 F 95 15 103/62 93 L 05/10/16 08:18 05/10/16 08:18 05/10/16 08:18 05/10/16 08:18 05/10/16 08:18 General appearance: Present: cooperative, mild distress, thin - Head Head Exam: Present: atraumatic, normal inspection - Eye Eye exam: Present: EOMI, normal appearance - ENT ENT exam: Present: mucous membranes moist, normal oropharynx - Neck Neck exam: Present: normal inspection - Respiratory Respiratory exam: Present: CTAB - Cardiovascular Cardiovascular exam: Present: RRR - GI/Abdominal Exam GI/Abdominal exam: Present: normal bowel sounds, soft. Absent: tenderness - Extremities Exam Extremities exam: Present: normal inspection. Absent: pedal edema, tenderness - Neurological Exam Neurological exam: Present: alert. Absent: altered, CN II-XII intact, oriented X3 - Psychiatric Psychiatric exam: Present: normal affect, normal mood. Absent: homicidal ideation, suicidal ideation - Skin Skin exam: Present: dry, warm Internal Medicine - CN: Reslt - Labs CBC & Chem 7: 05/10/16 06:18 05/10/16 06:18 Labs: Short CBC 05/10/16 Range/Units 06:18 WBC 7.7 (4.3-11.1) K/mcL Hgb 8.7 L (11.5-15.4) g/dL Hct 26.5 L (35.3-44.9) % Plt Count 121 L (140-400) K/mcL Neutrophils # 6.3 (1.6-8.9) K/mcL BMP 05/10/16 06:18 Sodium 131 L Potassium 4.0 Chloride 100 Carbon Dioxide 22 BUN 19 Creatinine 0.98 Glucose 128 H Calcium 8.5 L Urine 05/10/16 Range/Units 01:35 Urine Color [place] A (Yellow) Urine Clarity Cloudy A (Clear) Urine pH 5.5 (5.0-8.0) pH Units Ur Specific [place] 1.019 (1.010-1.025) Urine Protein 30 H (Neg-Trace) mg/dL Urine Glucose (UA) 100 H (Normal) mg/dL - ABG Interpretation ABG results: PT/INR, D-dimer PT 16.5 Seconds (9.4-12.1) H 05/09/16 10:35 Consult Discharge Plan - Plan Referrals: Chaz Puckett DO [Primary Care Provider] - Palliative Quality Palliative Quality: Screen for Code Status: Yes, Screen for Goals of Care: Yes, Screen for Pain: Yes, If Pain Regimen Started, Initiate Bowel Regimen: Yes, Screen for Nausea/Vomitting: Yes Code Status: 05/09/16 13:21 Resuscitation Status: Active [RES] Routine Comment: Resuscitation Status: DNR-Comfort Care
[2016-05-10] MEDS ORDERED: *HR* Alteplase (Cathflo) 2 MG VIAL IVP ONE (13:15)
--- NOTE | 2016-05-10 15:25 | Electrocardiograph Report ---
[place] [id number] Test Date: 2016-05-09 Pat Name: Alfreda Montero Department: 105 Room: 3B41 Gender: F Potato Bucker: : [id number] Requested By: Marlon Bennett Order Number: [id number] Reading MD: Cassandra Lentz Measurements Intervals [place] Rate: 92 P: 48 WI: 160 QRS: 42 QRSD: 73 T: 55 QT: 371 QTc: 421 Interpretive Statements SINUS RHYTHM Electronically Signed On 05-10-2016 15:24:05 EST by Cassandra Lentz
[2016-05-10] MEDS ORDERED: *HR* Dextrose 50 % in Water (Syg) 50 ML SYRINGE IVP PRN (18:01)
[2016-05-10] MEDS ORDERED: D5% in Water 1,000 ML IV PRN (18:01)
[2016-05-10] MEDS ORDERED: Dextrose Gel 15 GM PO PRN ×2 (18:01)
--- NOTE | 2016-05-10 18:02 | Oncology Inp Progress Note ---
Date of Encounter: 05/10/16 Time of Encounter: 08:00 (1) Pancreatic cancer Current Visit: Yes Status: Chronic Assessment and plan: PAncreatic adenoca, not surgical candidate due to general condition started gemcitabine aplliative chemotherapy tolerated first few rounds well. Reimaging was planned after C3. Hospitalized with poor intake, renal insufficiency, poor appetite and generalized wkness. Reimaging-hepatic fluid collection, small pancreatic lesion, periportal LN noted , imaging wo contrast. She will need biliary stent changed around this time. Palliative care on board to help with symptom management-start megace. FAmily concerned celexa be changed to something different as it does not seem to help her mood. Pain meds-on morphine as needed IV. Hospice as an option discussed earlier in the day with patient. Positive UA, UC pending. On IVF. Discussed her care with family/hospital team. Qualifiers: Pancreatic malignancy location: unspecified Qualified Code(s): C25.9 - Malignant neoplasm of pancreas, unspecified Oncology: Subj Interval history: Patient seen earlier today, sitting up eating jello. Decreased appetite to certain food. Has pain in the left lower and rt upper abdomen - Constitutional Vitals: Vital Signs Temp Pulse Resp BP Pulse Ox 05/10/16 16:14 99.4 F 90 15 144/53 95 05/10/16 12:25 98.3 F 95 16 111/67 97 05/10/16 08:18 99.6 F 95 15 103/62 93 L 05/09/16 22:56 100.1 F H 95 18 119/63 97 05/09/16 19:37 98 05/09/16 19:05 98.9 F 91 18 126/67 98 Intake and Output 05/10/16 05/10/16 05/10/16 07:59 15:59 23:59 Intake Total 240 / 240 Output Total 650 / 650 Balance -650 / -650 240 / 240 Intake: Oral 240 / 240 Output: Urine 650 / 650 Other: Meal Lunch Percent of Meal Consumed 20% General appearance: thin - Head Head exam: Present: atraumatic, normal inspection - Eye Eye exam: Present: sclera anicteric - ENT ENT exam: Present: mucous membranes moist - Respiratory Respiratory exam: Present: CTAB - Cardiovascular Cardiovascular exam: Present: +S1, +S2 - Neurological Exam Neurological exam: Present: alert, CN II-XII intact, oriented X3 Oncology: Obj Data - Labs CBC & Chem 7: 05/10/16 06:18 05/10/16 06:18 Labs: Laboratory Results - last 24 hr 05/10/16 05/10/16 05/10/16 01:35 06:18 06:18 WBC 7.7 RBC 2.89 L Hgb 8.7 L Hct 26.5 L MCV 91.7 MCH 30.1 MCHC 32.8 RDW 15.0 H Plt Count 121 L MPV 10.2 Seg Neutrophils % 80.0 Band Neutrophils % 2.0 Lymphocytes % 10.0 Monocytes % 8.0 Neutrophils # 6.3 Lymphocytes # 0.8 Monocytes # 0.6 Platelet Estimate Normal Sodium 131 L Potassium 4.0 Chloride 100 Carbon Dioxide 22 BUN 19 Creatinine 0.98 Est GFR ( Amer) > 60 Est GFR (Non-Af Amer) 54 L BUN/Creatinine Ratio 19 Glucose 128 H Calculated Osmolality 276 L Calcium 8.5 L Magnesium 0.8 L Urine Color [place] A Urine Clarity Cloudy A Urine pH 5.5 Ur Specific [place] 1.019 Urine Protein 30 H Urine Glucose (UA) 100 H Urine Ketones Negative Urine Blood Negative Urine Nitrite Negative Urine Bilirubin Large H Urine Urobilinogen 4.0 H Ur Leukocyte Esterase Small H Urine Microscopic RBC 0-3 Urine Microscopic WBC 5-15 H Ur Squamous Epith Cells Many H Urine Bacteria Moderate H Hyaline Casts Few Urine Mucus Few Ur Oval Fat Bodies Present A Ur Culture Indicated? YES A - Impressions Impressions Abdomen/Pelvis CT 05/10/16 12:16 IMPRESSION: 1. Stable stent placements. Focus of low attenuation in the pancreatic head may represent the patient's reported pancreatic malignancy. There is no vascular tumor encasement. There is a 1.7 cm periportal lymph node 2. Perihepatic fluid collection likely represents a subcapsular hematoma related to percutaneous biliary drain placement. There is no hemoperitoneum 3. Cholelithiasis, hiatal hernia, colonic diverticulosis D/ / Ad Rodrigues MD / Ad Rodrigues MD Interpreting Provider: Ad Rodrigues MD - Imaging and cardiology CT scan - abdomen Status: image reviewed by me - ABG Interpretation ABG results: PT/INR, D-dimer PT 16.5 Seconds (9.4-12.1) H 05/09/16 10:35 Consult Discharge Plan - Plan Referrals: Chaz Puckett DO [Primary Care Provider] -
--- NOTE | 2016-05-10 18:05 | Internal Med Progress Note ---
Date of Encounter: 05/10/16 Time of Encounter: 10:00 - Assessment and plan (1) Failure to thrive Current Visit: Yes Status: Acute Assessment and plan: Possible due to pancreas cancer and chemotherapy. Oncology consult appreciated. We will continue IV fluid to avoid dehydration. Closely follow up chemistry and vitals. Nutrition consult also appreciated. Qualifiers: Failure to thrive age range: in adult Qualified Code(s): R62.7 - Adult failure to thrive (2) SARAHY (acute kidney injury) Current Visit: Yes Status: Acute Assessment and plan: Possibly due to dehydration. Improved up to hydration. Continue to follow-up renal function (3) Pancreatic cancer Current Visit: Yes Status: Chronic Assessment and plan: Patient has pancreas cancer, on chemotherapy. Bile ductal stent placed by GI. Will follow oncology and GI recommendation for further management. Qualifiers: Pancreatic malignancy location: unspecified Qualified Code(s): C25.9 - Malignant neoplasm of pancreas, unspecified (4) Hypertension Current Visit: No Status: Chronic Assessment and plan: High blood pressure medication hydrochlorothiazide and lisinopril is temporarily on hold on admission because BP is not high and the patient has acute renal injury. We will resume home medication as renal function improved. Closely monitor blood pressure. Qualifiers: Hypertension type: unspecified secondary hypertension Qualified Code(s): I15.9 - Secondary hypertension, unspecified; I15 - Secondary hypertension (5) Hypothyroidism Current Visit: No Status: Chronic Assessment and plan: Continue home medication levothyroxine Qualifiers: Hypothyroidism type: unspecified Qualified Code(s): E03.9 - Hypothyroidism , unspecified (6) Type 2 diabetes mellitus Current Visit: No Status: Chronic Assessment and plan: Patient was on metformin at home. We will hold metformin in the hospital and cover the patient with sliding scale. Follow-up glucose level Qualifiers: Diabetes mellitus complication status: with unspecified complications Diabetes mellitus director long term care insulin use: without long-term use Qualified Code( s): E11.8 - Type 2 diabetes mellitus with unspecified complications (7) DVT prophylaxis Current Visit: No Status: Acute Assessment and plan: Heparin subcutaneously - Time Spent With Patient 25 - 35 minutes - Subjective Interval history: Patient is a 86-year-old female admitted for failure to thrive. Past medical history is significant for pancreas cancer, anemia, diabetes, hypertension, thyroid disease. Patient was seen and examined. She is weak, still poor uptake, in no acute distress. Discussed with patient's oncologist is Dr. Calabrese. We will repeat CT abdomen to see the progression of pancreas cancer. Patient was placed on stent before by GI. GI consult was called to check the stent. We will continue hydrate patient, nutrition counsult, and closely follow up chemistry and vitals. - Constitutional Vitals: Temp Pulse Resp BP Pulse Ox 99.4 F 90 15 144/53 95 05/10/16 16:14 05/10/16 16:14 05/10/16 16:14 05/10/16 16:14 05/10/16 16:14 General appearance: Present: A&O X 3, pleasant, underweight - Head Head exam: Present: atraumatic, normocephalic - Eye Eye exam: Present: PERRL, conjuntiva pink, sclera anicteric Pupils: Present: PERRL - Neck Neck exam general surgery: Present: supple, trachea midline. Absent: lymphadenopathy - Respiratory Respiratory exam: Present: CTAB. Absent: accessory muscle use, rales, rhonchi, wheezes - Cardiovascular Cardiovascular exam: Present: RRR, +S1, +S2. Absent: diastolic murmur, gallop, rubs, systolic murmur - GI/Abdominal GI/Abdominal exam: Present: normal bowel sounds, soft, no peritoneal signs. Absent: distended, tenderness - Extremities Exam Extremities exam: Present: warm, radial pulses palpable and symetrical. Absent : calf tenderness, cyanotic, pedal edema - Neurological Exam Neurological exam: Present: CN II-XII intact, oriented X3, no focal deficits. Absent: pronater drift, facial droop, speech deficit - Skin Skin exam: Present: dry, intact Internal Medicine: Result - Labs CBC & Chem 7: 05/10/16 06:18 05/10/16 06:18 Labs: Short CBC 05/10/16 Range/Units 06:18 WBC 7.7 (4.3-11.1) K/mcL Hgb 8.7 L (11.5-15.4) g/dL Hct 26.5 L (35.3-44.9) % Plt Count 121 L (140-400) K/mcL Neutrophils # 6.3 (1.6-8.9) K/mcL BMP 05/10/16 06:18 Sodium 131 L Potassium 4.0 Chloride 100 Carbon Dioxide 22 BUN 19 Creatinine 0.98 Glucose 128 H Calcium 8.5 L Urine 05/10/16 Range/Units 01:35 Urine Color [place] A (Yellow) Urine Clarity Cloudy A (Clear) Urine pH 5.5 (5.0-8.0) pH Units Ur Specific [place] 1.019 (1.010-1.025) Urine Protein 30 H (Neg-Trace) mg/dL Urine Glucose (UA) 100 H (Normal) mg/dL - ABG Interpretation ABG results: PT/INR, D-dimer PT 16.5 Seconds (9.4-12.1) H 05/09/16 10:35 - Impressions Impressions Abdomen/Pelvis CT 05/10/16 12:16 IMPRESSION: 1. Stable stent placements. Focus of low attenuation in the pancreatic head may represent the patient's reported pancreatic malignancy. There is no vascular tumor encasement. There is a 1.7 cm periportal lymph node 2. Perihepatic fluid collection likely represents a subcapsular hematoma related to percutaneous biliary drain placement. There is no hemoperitoneum 3. Cholelithiasis, hiatal hernia, colonic diverticulosis D/ / Ad Rodrigues MD / Ad Rodrigues MD Interpreting Provider: Ad Rodrigues MD Consult Discharge Plan - Plan Referrals: Chaz Puckett DO [Primary Care Provider] -
[2016-05-10] MEDS: 0.9 % Sodium Chloride 1,000 ML IVC SCH (18:52)
[2016-05-10] MEDS: hydroCHLOROthiazide 25 MG TABLET PO SCH (19:30)
[2016-05-10] MEDS: Sennosides/Docusate Sodium TABLET PO SCH (21:51)
[2016-05-10] MEDS ORDERED: *HR* Phytonadione 5 MG TABLET PO ONE (21:54)
[2016-05-10] MEDS: Insulin LISPRO 300 UNITS/3 ML VIAL SQ SCH (22:49)
[2016-05-11] MEDS: Famotidine 20 MG/2 ML VIAL IVP SCH ×2 (05:50→17:57)
[2016-05-11] MEDS: *HR* Heparin 5,000 UNIT/ML VIAL SQ SCH ×2 (05:56→17:56)
[2016-05-11 06:03] LABS: Basophils % 0.1 %; Eosinophils % 0.1 %; Hematocrit 24.6 % (35.3-44.9); Hemoglobin 8.3 g/dL (11.5-15.4); Immature Granulocytes % 0.6 % (0-4); Lymphocytes % 14.3 %; Mean Corpuscular HGB Conc 33.7 g/dL (31.6-35.5); Mean Corpuscular Hemoglobin 30.4 pg (28.0-33.3); Mean Corpuscular Volume 90.1 fL (83.0-100.0); Mean Platelet Volume 9.9 fL (9.4-12.4); Monocytes # 0.6 K/mcL (0.0-1.3); Monocytes % 8.2 %; Neutrophils # 5.4 K/mcL (1.6-8.9); Platelet Count 132 K/mcL (140-400); Red Blood Count 2.73 M/mcL (3.82-4.97); Segmented Neutrophils % 76.7 %
[2016-05-11 06:17] LABS: Alanine Aminotransferase 111 Units/L (0-55); Albumin/Globulin Ratio 0.5 (1.1-2.2); Alkaline Phosphatase 468 Units/L (38-126); Aspartate Amino Transferase 118 Units/L (5-34); BUN/Creatinine Ratio 17 (6-26); Bilirubin,Total 2.4 mg/dL (0.2-1.2); Blood Urea Nitrogen 14 mg/dL (7-20); Calcium 8.4 mg/dL (8.6-10.8); Carbon Dioxide 23 mEq/L (19-29); Chloride 98 mEq/L (98-109); Globulin 3.3 g/dL (2.4-3.5); Glucose 124 mg/dL (70-99); Osmolality,Calculated 272 (280-300); Potassium 3.3 mEq/L (3.5-4.5); Sodium 130 mEq/L (136-145); Total Protein 5.1 g/dL (6.0-8.3); eGFR For African Americans > 60 (> 60); eGFR For Non-African Americans > 60 (> 60)
[2016-05-11 06:19] LABS: Albumin 1.8 g/dL (3.5-5.0)
[2016-05-11] MEDS: Insulin LISPRO 300 UNITS/3 ML VIAL SQ SCH ×4 (08:02→21:06)
[2016-05-11] MEDS ORDERED: Ondansetron 4 MG/2 ML VIAL IVP ONE (08:34)
[2016-05-11] MEDS ORDERED: Lidocaine -MPF 2% 5 ML VIAL INFILT ONE (08:34)
[2016-05-11] MEDS ORDERED: *HR* Succinylcholine 200 MG/10 ML VIAL IVP ONE (08:34)
[2016-05-11] MEDS ORDERED: *HR* Phenylephrine 10 MG/ML VIAL IVC ONE (08:34)
[2016-05-11] MEDS: Megestrol Acetate 400 MG/10 ML UDC PO SCH (09:23)
[2016-05-11] MEDS: Aspirin 81 MG TAB.CHEW PO SCH (09:23)
[2016-05-11] MEDS: Lisinopril 20 MG TABLET PO SCH ×2 (09:23→16:17)
[2016-05-11] MEDS: Sennosides/Docusate Sodium TABLET PO SCH ×2 (09:23→20:57)
--- NOTE | 2016-05-11 09:50 | Palliative Progress Note ---
Date of Encounter: 05/11/16 Time of Encounter: 09:00 - Assessment and plan (1) SARAHY (acute kidney injury) Current Visit: Yes Status: Acute Assessment and plan: Has now returned to normal, continue to watch (2) Failure to thrive Current Visit: Yes Status: Acute Assessment and plan: Starting Megace today. May wish to consider going up on her Celexa as I believe that there is some degree of situational depression present. Qualifiers: Failure to thrive age range: in adult Qualified Code(s): R62.7 - Adult failure to thrive (3) Goals of care, counseling/discussion Current Visit: Yes Status: Acute Assessment and plan: CODE STATUS DNR comfort care, patient does however wish to continue getting any and all therapies available for her for her pancreatic cancer. (4) Pancreatic cancer Current Visit: Yes Status: Chronic Assessment and plan: She is pursuing full therapy for her cancer at this time. Qualifiers: Pancreatic malignancy location: unspecified Qualified Code(s): C25.9 - Malignant neoplasm of pancreas, unspecified (5) Constipation Current Visit: Yes Status: Acute Assessment and plan: Bowel regimen just getting started we will continue to watch Qualifiers: Constipation type: slow transit constipation Qualified Code(s): K59.01 - Slow transit constipation - Time Spent With Patient Total time spent is greater than 50% in coordination of care (as documented) at patient's floor/unit and/or counseling patient: - Subjective Interval history: The patient states that her pain is under good control currently. sHe still has no appetite secondary to no taste. Did discuss this with dietary yesterday , she does not seem to have a great deal of hope that they can help her very much. No bowel movement as yet just starting bowel regimen. - Constitutional Vitals: Abnormal lab results RBC 2.73 M/mcL (3.82-4.97) L 05/11/16 05:45 Hgb 8.3 g/dL (11.5-15.4) L 05/11/16 05:45 Hct 24.6 % (35.3-44.9) L 05/11/16 05:45 RDW 15.0 % (11.5-14.5) H 05/11/16 05:45 Plt Count 132 K/mcL (140-400) L 05/11/16 05:45 PT 16.5 Seconds (9.4-12.1) H 05/09/16 10:35 Sodium 130 mEq/L (136-145) L 05/11/16 05:45 Potassium 3.3 mEq/L (3.5-4.5) L 05/11/16 05:45 Glucose 124 mg/dL (70-99) H 05/11/16 05:45 POC Glucose 124 (58-89) H 05/11/16 07:47 Calculated Osmolality 272 (280-300) L 05/11/16 05:45 Calcium 8.4 mg/dL (8.6-10.8) L 05/11/16 05:45 Magnesium 0.8 mg/dL (1.6-2.6) L 05/10/16 06:18 Total Bilirubin 2.4 mg/dL (0.2-1.2) H 05/11/16 05:45 AST 118 Units/L (5-34) H 05/11/16 05:45 ALT 111 Units/L (0-55) H 05/11/16 05:45 Alkaline Phosphatase 468 Units/L (38-126) H 05/11/16 05:45 Serum Total Protein 5.1 g/dL (6.0-8.3) L 05/11/16 05:45 Albumin 1.8 g/dL (3.5-5.0) L 05/11/16 05:45 Albumin/Globulin Ratio 0.5 (1.1-2.2) L 05/11/16 05:45 Urine Color [place] (Yellow) A 05/10/16 01:35 Urine Clarity Cloudy (Clear) A 05/10/16 01:35 Urine Protein 30 mg/dL (Neg-Trace) H 05/10/16 01:35 Urine Glucose (UA) 100 mg/dL (Normal) H 05/10/16 01:35 Urine Bilirubin Large (Negative) H 05/10/16 01:35 Urine Urobilinogen 4.0 mg/dL (Normal) H 05/10/16 01:35 Ur Leukocyte Esterase Small (Negative) H 05/10/16 01:35 Urine Microscopic WBC 5-15 per hpf (0-3) H 05/10/16 01:35 Ur Squamous Epith Cells Many per lpf (None-Few) H 05/10/16 01:35 Urine Bacteria Moderate per hpf (None-Few) H 05/10/16 01:35 Ur Oval Fat Bodies Present (Not Present) A 05/10/16 01:35 Ur Culture Indicated? YES (NO) A 05/10/16 01:35 General appearance: Present: no acute distress - Head Head exam: Present: atraumatic, normal inspection - Eye Eye exam: Present: normal appearance, PERRL - ENT ENT exam: Present: mucous membranes moist - Respiratory Respiratory exam: Present: rhonchi (Occasional). Absent: CTAB - Cardiovascular Cardiovascular exam: Present: RRR - GI/Abdominal GI/Abdominal exam: Present: normal bowel sounds, soft. Absent: tenderness - Extremities Exam Extremities exam: Present: normal inspection. Absent: pedal edema, tenderness - Neurological Exam Neurological exam: Present: alert, oriented X3 - Psychiatric Psychiatric exam: Present: normal affect (There is some range, however it may be somewhat constrained.), normal mood. Absent: agitated, anxious - Skin Skin exam: Present: dry, warm Palliative Quality Palliative Quality: Screen for Code Status: Yes, Screen for Goals of Care: Yes, Screen for Pain: Yes, If Pain Regimen Started, Initiate Bowel Regimen: Yes, Screen for Nausea/Vomitting: Yes Code Status: 05/09/16 13:21 Resuscitation Status: Active [RES] Routine Comment: Resuscitation Status: DNR-Comfort Care - Labs CBC & Chem 7: 05/11/16 05:45 05/11/16 05:45 Labs: Laboratory Results - last 24 hr 05/10/16 05/11/16 05/11/16 21:59 05:45 05:45 WBC 7.1 RBC 2.73 L Hgb 8.3 L Hct 24.6 L MCV 90.1 MCH 30.4 MCHC 33.7 RDW 15.0 H Plt Count 132 L MPV 9.9 Immature Gran % 0.6 Seg Neutrophils % 76.7 Lymphocytes % 14.3 Monocytes % 8.2 Eosinophils % 0.1 Basophils % 0.1 Neutrophils # 5.4 Lymphocytes # 1.0 Monocytes # 0.6 Eosinophils # 0.0 Basophils # 0.0 Sodium 130 L Potassium 3.3 L Chloride 98 Carbon Dioxide 23 BUN 14 Creatinine 0.81 Est GFR ( Amer) > 60 Est GFR (Non-Af Amer) > 60 BUN/Creatinine Ratio 17 Glucose 124 H POC Glucose 183 H Calculated Osmolality 272 L Calcium 8.4 L Total Bilirubin 2.4 H AST 118 H ALT 111 H Alkaline Phosphatase 468 H Serum Total Protein 5.1 L Albumin 1.8 L Globulin 3.3 Albumin/Globulin Ratio 0.5 L 05/11/16 07:47 WBC RBC Hgb Hct MCV MCH MCHC RDW Plt Count MPV Immature Gran % Seg Neutrophils % Lymphocytes % Monocytes % Eosinophils % Basophils % Neutrophils # Lymphocytes # Monocytes # Eosinophils # Basophils # Sodium Potassium Chloride Carbon Dioxide BUN Creatinine Est GFR ( Amer) Est GFR (Non-Af Amer) BUN/Creatinine Ratio Glucose POC Glucose 124 H Calculated Osmolality Calcium Total Bilirubin AST ALT Alkaline Phosphatase Serum Total Protein Albumin Globulin Albumin/Globulin Ratio - Impressions Impressions Abdomen/Pelvis CT 05/10/16 12:16 IMPRESSION: 1. Stable stent placements. Focus of low attenuation in the pancreatic head may represent the patient's reported pancreatic malignancy. There is no vascular tumor encasement. There is a 1.7 cm periportal lymph node 2. Perihepatic fluid collection likely represents a subcapsular hematoma related to percutaneous biliary drain placement. There is no hemoperitoneum 3. Cholelithiasis, hiatal hernia, colonic diverticulosis D/ / Ad Rodrigues MD / Ad Rodrigues MD Interpreting Provider: Ad Rodrigues MD - ABG Interpretation ABG results: PT/INR, D-dimer PT 16.5 Seconds (9.4-12.1) H 05/09/16 10:35 Consult Discharge Plan - Plan Referrals: Chaz Puckett DO [Primary Care Provider] - 05/17/16 10:15 am
[2016-05-11] MEDS: 0.9 % Sodium Chloride 1,000 ML IVC SCH (12:01)
--- NOTE | 2016-05-11 12:17 | Gastroenterology Consult Note ---
<Ric Conroy - Last Filed: 05/11/16 12:15> Date of Encounter: 05/11/16 Time of Encounter: 10:40 - Assessment and plan (1) Pancreatic cancer Current Visit: Yes Status: Chronic Assessment and plan: Oncology following. CT A/P shows stable stent placement, low-attenuation pancreatic head which may represent a malignancy, perihepatic fluid collection likely subcapsular hematoma. TB 2.4, AST 118, ALT 111, alkaline phosphatase 468. Plan for ERCP today with stent replacement. Qualifiers: Pancreatic malignancy location: unspecified Qualified Code(s): C25.9 - Malignant neoplasm of pancreas, unspecified (2) Anemia Current Visit: No Status: Acute Assessment and plan: Hgb 8.3 on admission 9.7, and on 04/28/2016 Hgb 11.3. Multifactorial, could be secondary to chemotherapy or malignancy. Continue to monitor CBC and transfuse PRBC as needed. Qualifiers: Anemia type: unspecified type Qualified Code(s): D64.9 - Anemia, unspecified (3) Failure to thrive Current Visit: Yes Status: Acute Assessment and plan: Decreased appetite, likely secondary to chemotherapy. Qualifiers: Failure to thrive age range: in adult Qualified Code(s): R62.7 - Adult failure to thrive - Time Spent With Patient Total time spent is greater than 50% in coordination of care (as documented) at patient's floor/unit and/or counseling patient: GI History of Present Illness - Data of Consult Patient: known to practice within the last 3 years Consult date: 05/11/16 Requesting Physician: Caesar Ivy MD - Consult Narrative Reason for consult: Pancreatic cancer History of present illness: Ms. Montero is a 86 year old female with PMHx of pancreatic cancer diagnosed 2015, DM, HTN, GERD, hypothyroidism who presented to the ED with c/o progressive weakness, dizziness, poor PO intake, and failure to thrive. She was evaluated by [facility] and was not a surgical candidate due to comorbidities and nutritional status. She is receiving palliative chemotherapy. On admission Hgb 9.7, and this AM Hgb 8.3. Hgb was 11.3 on 04/28/2016. This AM TB 2.4, AST 118, and ALT 111. We have been consulted to evaluate stent placed in March. Procedures: EUS 03/19/2016 Hypoechoic mass in head of pancreas, CBD ~12mm wiht abrupt cutoff in head of pancreas. ERCP 03/21/2016: biliary sphincterotomy, unable to cannulate bile duct. Recommended PTCA by IR and then rendezvous procedure later for internalization of the stent. NSAIDs: ASA Anticoagulation: None Past Med Surg Social Fam HX - Past Medical History Medical history: cancer, diabetes, GERD, hyperlipidemia, hypertension, thyroid disease, other Psychiatric history: anxiety, depression - Past Surgical History Surgical History: no surgical history - Social History Smoking Status: Never smoker Smokeless Tobacco Status: No Alcohol use: none Drug use: none - Family History Mother Hx Family Cardiac Disorders: Yes (stroke) Father Living Status: - Gastrointestinal Gastrointestinal: Present: as per HPI - Constitutional Constitutional: as per HPI - EENT Eyes: as per HPI Ears: Present: as per HPI Nose, mouth and throat: Present: as per HPI - Cardiovascular Cardiovascular ROS: Present: as per HPI - Respiratory Respiratory IM: Present: as per HPI - Genitourinary Genitourinary: Absent: change in color, Urinary frequency - Neurological ROS Neurological GI: Present: as per HPI - Hematologic/Lymphatic Hematologic/Lymphatic pediatric: Present: as per HPI - Musculoskeletal Musculoskeletal ROS GI: Present: as per HPI - Integumentary Integumentary GI: Present: as per HPI - Psychiatric ROS Psychiatric GI: Present: as per HPI - Endocrine Endocrine IM: Present: as per HPI - Constitutional Vitals: Temp Pulse Resp BP Pulse Ox 98.6 F 75 18 129/67 95 05/11/16 11:35 05/11/16 11:35 05/11/16 11:35 05/11/16 11:35 05/11/16 11:35 General appearance: Present: cooperative, A&O X 3, no acute distress, answers questions appropriately - Head Head exam: Present: atraumatic, normocephalic - Eye Eye exam: Present: normal appearance, sclera anicteric - ENT ENT exam: Present: mucous membranes dry - Neck Neck exam general surgery: Present: normal inspection, trachea midline - Respiratory Respiratory exam: Present: CTAB. Absent: rales, rhonchi - Cardiovascular Cardiovascular exam: Present: RRR, +S1, +S2 - GI/Abdominal GI/Abdominal exam: Present: soft, no peritoneal signs. Absent: distended, firm , guarding, tenderness - Rectal Rectal exam: Present: deferred - Extremities Exam Extremities exam: Present: warm - Neurological Exam Neurological exam: Present: no focal deficits - Psychiatric Psychiatric exam: Present: normal affect, normal mood - Skin Skin exam: Present: dry, intact, normal color, warm Results - Labs CBC & Chem 7: 05/11/16 05:45 05/11/16 05:45 Labs: Last Result Calcium 8.4 mg/dL (8.6-10.8) L 05/11/16 05:45 Troponin I 0.01 ng/mL (0-0.03) 05/09/16 10:35 Entire Visit Hgb 8.3 g/dL (11.5-15.4) L 05/11/16 05:45 Hct 24.6 % (35.3-44.9) L 05/11/16 05:45 PT 16.5 Seconds (9.4-12.1) H 05/09/16 10:35 Total Bilirubin 2.4 mg/dL (0.2-1.2) H 05/11/16 05:45 AST 118 Units/L (5-34) H 05/11/16 05:45 ALT 111 Units/L (0-55) H 05/11/16 05:45 - ABG ABG results: PT/INR, D-dimer PT 16.5 Seconds (9.4-12.1) H 05/09/16 10:35 - Impressions Impressions Abdomen/Pelvis CT 05/10/16 12:16 IMPRESSION: 1. Stable stent placements. Focus of low attenuation in the pancreatic head may represent the patient's reported pancreatic malignancy. There is no vascular tumor encasement. There is a 1.7 cm periportal lymph node 2. Perihepatic fluid collection likely represents a subcapsular hematoma related to percutaneous biliary drain placement. There is no hemoperitoneum 3. Cholelithiasis, hiatal hernia, colonic diverticulosis D/ / Ad Rodrigues MD / Ad Rodrigues MD Interpreting Provider: Ad Rodrigues MD Consult Discharge Plan - Plan Referrals: Puckett,Chaz R, DO [Primary Care Provider] - 05/17/16 10:15 am <LuAmos - Last Filed: 05/11/16 18:28> Time of Encounter: 13:00 - Time Spent With Patient Total time spent is greater than 50% in coordination of care (as documented) at patient's floor/unit and/or counseling patient: GI History of Present Illness - Data of Consult Requesting Physician: Caesar Ivy MD - Consult Narrative History of present illness: Ms. Montero is a 86 year old female - Constitutional Vitals: Temp Pulse Resp BP Pulse Ox 98.3 F 80 20 179/70 96 05/11/16 15:50 05/11/16 15:50 05/11/16 15:50 05/11/16 15:50 05/11/16 15:50 Results - Labs CBC & Chem 7: 05/11/16 05:45 05/11/16 05:45 Labs: Last Result Calcium 8.4 mg/dL (8.6-10.8) L 05/11/16 05:45 Troponin I 0.01 ng/mL (0-0.03) 05/09/16 10:35 Entire Visit Hgb 8.3 g/dL (11.5-15.4) L 05/11/16 05:45 Hct 24.6 % (35.3-44.9) L 05/11/16 05:45 PT 16.5 Seconds (9.4-12.1) H 05/09/16 10:35 Total Bilirubin 2.4 mg/dL (0.2-1.2) H 05/11/16 05:45 AST 118 Units/L (5-34) H 05/11/16 05:45 ALT 111 Units/L (0-55) H 05/11/16 05:45 - ABG ABG results: PT/INR, D-dimer PT 16.5 Seconds (9.4-12.1) H 05/09/16 10:35
--- NOTE | 2016-05-11 13:46 | Anesthesia Evaluation PreOp ---
Date of Encounter: 05/11/16 Time of Encounter: 13:45 - Past History Planned Operation: ERCP Cardiac History: HTN, Other (Mild , Anemia) Pulmonary History: Denies Any Significant HX STORES ASSISTANT History: Denies Any Significant HX Other Medical History: Thyroid, Other (Pancreatic cancer) Anesthesia History: No Prior Anesthetic Complications : No Alcohol Use: none Drug use: none Medications and Allergies Aspirin 81 mg PO DAILY 03/18/16 [History] Citalopram [CeleXA] 20 mg PO DAILY 03/18/16 [History] Levothyroxine [Synthroid] 88 mcg PO DAILY 03/18/16 [History] Metformin [Glucophage] 500 mg PO BID 03/18/16 [History] Omeprazole [PriLOSEC] 40 mg PO DAILY 03/18/16 [History] Pravastatin Sodium [Pravachol] 40 mg PO DAILY 03/18/16 [History] Lisinopril [Zestril] 20 mg PO DAILY #30 tablet 03/24/16 [Rx] Ondansetron ODT [Zofran ODT] 4 mg SL Q6HR PRN #15 tab.rapdis 03/24/16 [Rx] OxyCODONE Immed Rel [Roxicodone 5 MG] 5 mg PO Q6HR PRN #25 tablet 03/24/16 [Rx] Promethazine [Phenergan] 12.5 mg PO Q6HR PRN #30 tablet 03/24/16 [Rx] Ondansetron HCl [Zofran] 4 mg PO Q6H PRN #30 tablet 04/11/16 [Rx] Prochlorperazine Maleate [Compazine] 10 mg PO Q6HR #30 tablet 04/11/16 [Rx] Docusate [Colace] 100 mg PO DAILY PRN 05/09/16 [History] Hydrochlorothiazide 12.5 mg PO Q48H 05/09/16 [History] Loratadine [Claritin] 10 mg PO DAILY 05/09/16 [History] Multivit-Min/Iron/Folic/Lutein [Centrum Silver Women Tablet] 1 tab PO DAILY 09/17 [History] Allergies No Known Allergies Allergy (Verified 03/28/16 07:55) - Meds/Allergy Pre-op Review Medications Reviewed: Yes Allergies Reviewed: Yes Beta Blockers on Current Med List: No Anesthesia Results - Labs 05/11/16 05:45 05/11/16 05:45 - Imaging EKG: report reviewed (SR) Additional studies: ECHO EF 60% Anesthesia Exam O2 Sat Height 1.57 m Weight 58.423 kg Weight 58.423 kg O2 Sat by Pulse Oximetry 97 O2 Sat by Pulse Oximetry 95 O2 Sat by Pulse Oximetry 95 O2 Sat by Pulse Oximetry 96 O2 Sat by Pulse Oximetry 95 O2 Sat by Pulse Oximetry 97 O2 Sat by Pulse Oximetry 95 Vital Signs Temp Pulse Resp BP Pulse Ox 98.2 F 113 18 85/50 98 05/09/16 10:03 05/09/16 10:03 05/09/16 10:03 05/09/16 10:03 05/09/16 10:03 Height: 5'2 Weight: 128 lbs NPO (# of Hours): MN Pain Scale: 0 - HEENT Pupil (Motor): Pupils equal, EOMI Mallampati: II Teeth: Normal Oral Opening: Less than or equal to 3 - STORES ASSISTANT LOC: Oriented STORES ASSISTANT Motor: Normal RUE, Normal LUE, Normal RLE, Normal LLE, Normal Face STORES ASSISTANT Sensory: Normal: RUE, LUE, RLE, LLE, Face - Cardiac Rhythm: Regular Murmur: None JVD: No Carotid Bruit: No - Pulmonary Breath Sounds: bilateral Clear Respiratory Effort: Symmetrical Anesthesia Assess/Plan ASA Score: 3 (HTN Anemia) Modified Wittenberg Scale for Level of Consciousness: Cooperative, oriented, and tranquil Anesthetic Plan: General Monitoring Plan: Standard Monitors Recovery Plan: PACU (Discussed GA, agrees to proceed)
[2016-05-11] MEDS ORDERED: Indomethacin 50 MG SUPP.RECT RC ONE ×2 (14:03→15:01)
[2016-05-11] MEDS ORDERED: *HR* FentaNYL (PF) 100 MCG/2 ML VIAL ONE (14:05)
[2016-05-11] MEDS ORDERED: Ringers Solution, Lactated 1,000 ML IVC SCH (14:15)
--- NOTE | 2016-05-11 15:32 | Anesthesia Evaluation Post Op ---
Date of Encounter: 05/11/16 Time of Encounter: 15:30 - Vital Signs Vital Signs: Vital Signs/O2 Sat/Glucose, Most Current Temp Pulse Resp BP Pulse Ox 05/11/16 15:29 71 16 170/56 98 05/11/16 15:19 75 16 169/61 98 05/11/16 15:09 98.2 F 78 18 167/60 100 05/11/16 13:25 99.1 F 88 18 142/59 97 05/11/16 11:35 98.6 F 75 18 129/67 95 - Lungs Lungs: Clear Ascult./Percussion - Airway Airway: Non-obstructed - Cardiovascular Regular Rate - Mental Status Mental Status: Alert & Oriented, Answers Appropriately - Pain Pain Scale: 0 - Nausea Vomiting Nausea Vomiting: Not Present - Hydration Hydration: Ice chips - Discharge PostOp Status: Transfer Patient to floor
--- NOTE | 2016-05-11 16:57 | Internal Med Progress Note ---
Date of Encounter: 05/11/16 Time of Encounter: 10:00 - Assessment and plan (1) Failure to thrive Current Visit: Yes Status: Acute Assessment and plan: Possible due to pancreas cancer and chemotherapy. Oncology consult appreciated. We will continue IV fluid to avoid dehydration. Closely follow up chemistry and vitals. Nutrition consult also appreciated. Palliative care on case and megestrol added. Pt also has stent replaced by GI. Continue closely monitoring. Qualifiers: Failure to thrive age range: in adult Qualified Code(s): R62.7 - Adult failure to thrive (2) SARAHY (acute kidney injury) Current Visit: Yes Status: Acute Assessment and plan: Possibly due to dehydration. Improved after hydration. Continue to follow-up renal function (3) Pancreatic cancer Current Visit: Yes Status: Chronic Assessment and plan: Patient has pancreas cancer, on chemotherapy. Bile ductal stent replaced by GI. Will follow oncology and GI recommendation for further management. Qualifiers: Pancreatic malignancy location: unspecified Qualified Code(s): C25.9 - Malignant neoplasm of pancreas, unspecified (4) Hypertension Current Visit: No Status: Chronic Assessment and plan: High blood pressure medication hydrochlorothiazide and lisinopril is temporarily on hold on admission because BP is not high and the patient has acute renal injury. We will resume home medication as renal function improved. Closely monitor blood pressure. Qualifiers: Hypertension type: unspecified secondary hypertension Qualified Code(s): I15.9 - Secondary hypertension, unspecified; I15 - Secondary hypertension (5) Hypothyroidism Current Visit: No Status: Chronic Assessment and plan: Continue home medication levothyroxine Qualifiers: Hypothyroidism type: unspecified Qualified Code(s): E03.9 - Hypothyroidism , unspecified (6) Type 2 diabetes mellitus Current Visit: No Status: Chronic Assessment and plan: Patient was on metformin at home. We will hold metformin in the hospital and cover the patient with sliding scale. Follow-up glucose level Qualifiers: Diabetes mellitus complication status: with unspecified complications Diabetes mellitus terminal gauger insulin use: without care home use Qualified Code( s): E11.8 - Type 2 diabetes mellitus with unspecified complications (7) DVT prophylaxis Current Visit: No Status: Acute Assessment and plan: Heparin subcutaneously - Time Spent With Patient 25 - 35 minutes - Subjective Interval history: Patient is a 86-year-old female admitted for failure to thrive. Past medical history is significant for pancreas cancer, anemia, diabetes, hypertension, thyroid disease. Patient was seen and examined. She is still weak, has poor uptake, in no acute distress. GI has seen pt and had stent replaced. Paliative care on case, Megestrol added. We will continue hydrate patient, and closely follow up chemistry and vitals. - Constitutional Vitals: Temp Pulse Resp BP Pulse Ox 98.3 F 80 20 179/70 96 05/11/16 15:50 05/11/16 15:50 05/11/16 15:50 05/11/16 15:50 05/11/16 15:50 General appearance: Present: A&O X 3, pleasant, underweight - Head Head exam: Present: atraumatic, normocephalic - Eye Eye exam: Present: PERRL, conjuntiva pink, sclera anicteric Pupils: Present: PERRL - Neck Neck exam general surgery: Present: supple, trachea midline. Absent: lymphadenopathy - Respiratory Respiratory exam: Present: CTAB. Absent: accessory muscle use, rales, rhonchi, wheezes - Cardiovascular Cardiovascular exam: Present: RRR, +S1, +S2. Absent: diastolic murmur, gallop, rubs, systolic murmur - GI/Abdominal GI/Abdominal exam: Present: normal bowel sounds, soft, no peritoneal signs. Absent: distended, tenderness - Extremities Exam Extremities exam: Present: warm, radial pulses palpable and symetrical. Absent : calf tenderness, cyanotic, pedal edema - Neurological Exam Neurological exam: Present: CN II-XII intact, oriented X3, no focal deficits. Absent: pronater drift, facial droop, speech deficit - Skin Skin exam: Present: dry, intact Internal Medicine: Result - Labs CBC & Chem 7: 05/11/16 05:45 05/11/16 05:45 - ABG Interpretation ABG results: PT/INR, D-dimer PT 16.5 Seconds (9.4-12.1) H 05/09/16 10:35 - VTE Documentation of Mechanical Device: Intermittent pneumatic compression device Consult Discharge Plan - Plan Referrals: Chaz Puckett DO [Primary Care Provider] - 05/17/16 10:15 am
[2016-05-12] MEDS: 0.9 % Sodium Chloride 1,000 ML IVC SCH ×2 (04:12→20:06)
[2016-05-12 04:20] LABS: Hematocrit 25.5 % (35.3-44.9); Hemoglobin 8.3 g/dL (11.5-15.4); Lymphocytes # 0.8 K/mcL (0.6-4.6); Lymphocytes % 15.9 %; Mean Corpuscular HGB Conc 32.5 g/dL (31.6-35.5); Mean Corpuscular Hemoglobin 29.9 pg (28.0-33.3); Mean Corpuscular Volume 91.7 fL (83.0-100.0); Mean Platelet Volume 10.3 fL (9.4-12.4); Monocytes # 0.4 K/mcL (0.0-1.3); Monocytes % 8.3 %; Neutrophils # 3.8 K/mcL (1.6-8.9); Platelet Count 147 K/mcL (140-400); Red Blood Count 2.78 M/mcL (3.82-4.97); Segmented Neutrophils % 74.8 %
[2016-05-12 04:31] LABS: Alanine Aminotransferase 81 Units/L (0-55); Albumin/Globulin Ratio 0.5 (1.1-2.2); Alkaline Phosphatase 433 Units/L (38-126); Aspartate Amino Transferase 57 Units/L (5-34); BUN/Creatinine Ratio 23 (6-26); Bilirubin,Total 1.6 mg/dL (0.2-1.2); Blood Urea Nitrogen 22 mg/dL (7-20); Calcium 8.2 mg/dL (8.6-10.8); Carbon Dioxide 19 mEq/L (19-29); Chloride 102 mEq/L (98-109); Globulin 3.4 g/dL (2.4-3.5); Glucose 215 mg/dL (70-99); Osmolality,Calculated 284 (280-300); Potassium 3.9 mEq/L (3.5-4.5); Sodium 132 mEq/L (136-145); Total Protein 5.1 g/dL (6.0-8.3); eGFR For African Americans > 60 (> 60); eGFR For Non-African Americans 57 (> 60)
[2016-05-12 04:33] LABS: Albumin 1.7 g/dL (3.5-5.0)
[2016-05-12] MEDS: Famotidine 20 MG/2 ML VIAL IVP SCH ×2 (06:26→17:07)
[2016-05-12] MEDS: *HR* Heparin 5,000 UNIT/ML VIAL SQ SCH ×2 (06:26→20:07)
[2016-05-12] MEDS: Lisinopril 20 MG TABLET PO SCH (08:34)
[2016-05-12] MEDS: Sennosides/Docusate Sodium TABLET PO SCH ×2 (08:35→20:07)
[2016-05-12] MEDS: Aspirin 81 MG TAB.CHEW PO SCH (08:35)
[2016-05-12] MEDS: Insulin LISPRO 300 UNITS/3 ML VIAL SQ SCH ×4 (08:36→21:19)
[2016-05-12] MEDS: Megestrol Acetate 400 MG/10 ML UDC PO SCH (08:36)
--- NOTE | 2016-05-12 11:03 | Palliative Progress Note ---
<LariosKevin Ayo - Last Filed: 05/12/16 11:03> Date of Encounter: 05/12/16 Time of Encounter: 11:01 - Assessment and plan (1) SARAHY (acute kidney injury) Current Visit: Yes Status: Acute Assessment and plan: back to baseline. continue to monitor (2) Constipation Current Visit: Yes Status: Acute Assessment and plan: bowel regimen initiated yesterday. patient states she has had a BM recently. continue current therapy. Qualifiers: Constipation type: slow transit constipation Qualified Code(s): K59.01 - Slow transit constipation (3) Failure to thrive Current Visit: Yes Status: Acute Assessment and plan: Megace started yesterday. Pt. ate breakfast and was filling out lunch menu. continue Megace Qualifiers: Failure to thrive age range: in adult Qualified Code(s): R62.7 - Adult failure to thrive (4) Goals of care, counseling/discussion Current Visit: Yes Status: Acute Assessment and plan: CODE STATUS DNR comfort care, patient does however wish to continue getting any and all therapies available for her for her pancreatic cancer. (5) Pancreatic cancer Current Visit: Yes Status: Chronic Assessment and plan: She is pursuing full therapy for her cancer at this time. Qualifiers: Pancreatic malignancy location: unspecified Qualified Code(s): C25.9 - Malignant neoplasm of pancreas, unspecified - Time Spent With Patient Total time spent is greater than 50% in coordination of care (as documented) at patient's floor/unit and/or counseling patient: - Subjective Interval history: Patient seen and examined. She is sitting up in bed. She did eat thia am and was planning to have lunch as well. Stoic. Doesn't have much to say. States she had a BM two days ago and has no complaints at this time. She denies any pain or discomfort. She denies nausea. Hopes to be discharged home soon. - Constitutional Vitals: Abnormal lab results RBC 2.78 M/mcL (3.82-4.97) L 05/12/16 04:00 Hgb 8.3 g/dL (11.5-15.4) L 05/12/16 04:00 Hct 25.5 % (35.3-44.9) L 05/12/16 04:00 RDW 15.0 % (11.5-14.5) H 05/12/16 04:00 PT 16.5 Seconds (9.4-12.1) H 05/09/16 10:35 Sodium 132 mEq/L (136-145) L 05/12/16 04:00 BUN 22 mg/dL (7-20) H 05/12/16 04:00 Est GFR (Non-Af Amer) 57 (> 60) L 05/12/16 04:00 Glucose 215 mg/dL (70-99) H 05/12/16 04:00 POC Glucose 282 (58-89) H 05/11/16 20:24 Calcium 8.2 mg/dL (8.6-10.8) L 05/12/16 04:00 Magnesium 0.8 mg/dL (1.6-2.6) L 05/10/16 06:18 Total Bilirubin 1.6 mg/dL (0.2-1.2) H 05/12/16 04:00 AST 57 Units/L (5-34) H 05/12/16 04:00 ALT 81 Units/L (0-55) H 05/12/16 04:00 Alkaline Phosphatase 433 Units/L (38-126) H 05/12/16 04:00 Serum Total Protein 5.1 g/dL (6.0-8.3) L 05/12/16 04:00 Albumin 1.7 g/dL (3.5-5.0) L 05/12/16 04:00 Albumin/Globulin Ratio 0.5 (1.1-2.2) L 05/12/16 04:00 Urine Color Cambria (Yellow) A 05/10/16 01:35 Urine Clarity Cloudy (Clear) A 05/10/16 01:35 Urine Protein 30 mg/dL (Neg-Trace) H 05/10/16 01:35 Urine Glucose (UA) 100 mg/dL (Normal) H 05/10/16 01:35 Urine Bilirubin Large (Negative) H 05/10/16 01:35 Urine Urobilinogen 4.0 mg/dL (Normal) H 05/10/16 01:35 Ur Leukocyte Esterase Small (Negative) H 05/10/16 01:35 Urine Microscopic WBC 5-15 per hpf (0-3) H 05/10/16 01:35 Ur Squamous Epith Cells Many per lpf (None-Few) H 05/10/16 01:35 Urine Bacteria Moderate per hpf (None-Few) H 05/10/16 01:35 Ur Oval Fat Bodies Present (Not Present) A 05/10/16 01:35 Ur Culture Indicated? YES (NO) A 05/10/16 01:35 General appearance: Present: no acute distress, thin - Respiratory Respiratory exam: Present: decreased breath sounds, CTAB - Cardiovascular Cardiovascular exam: Present: RRR - GI/Abdominal GI/Abdominal exam: Present: normal bowel sounds - Neurological Exam Neurological exam: Present: alert, oriented X3 - Psychiatric Additional comments: [facility] Palliative Quality Palliative Quality: Screen for Code Status: Yes, Screen for Goals of Care: Yes, Screen for Pain: Yes, If Pain Regimen Started, Initiate Bowel Regimen: Yes, Screen for Nausea/Vomitting: Yes - Labs CBC & Chem 7: 05/12/16 04:00 05/12/16 04:00 Labs: Laboratory Results - last 24 hr 05/11/16 05/11/16 05/12/16 16:09 20:24 04:00 WBC 5.0 RBC 2.78 L Hgb 8.3 L Hct 25.5 L MCV 91.7 MCH 29.9 MCHC 32.5 RDW 15.0 H Plt Count 147 MPV 10.3 Immature Gran % 1.0 Seg Neutrophils % 74.8 Lymphocytes % 15.9 Monocytes % 8.3 Eosinophils % 0.0 Basophils % 0.0 Neutrophils # 3.8 Lymphocytes # 0.8 Monocytes # 0.4 Eosinophils # 0.0 Basophils # 0.0 Sodium Potassium Chloride Carbon Dioxide BUN Creatinine Est GFR ( Amer) Est GFR (Non-Af Amer) BUN/Creatinine Ratio Glucose POC Glucose 168 H 282 H Calculated Osmolality Calcium Total Bilirubin AST ALT Alkaline Phosphatase Serum Total Protein Albumin Globulin Albumin/Globulin Ratio 05/12/16 04:00 WBC RBC Hgb Hct MCV MCH MCHC RDW Plt Count MPV Immature Gran % Seg Neutrophils % Lymphocytes % Monocytes % Eosinophils % Basophils % Neutrophils # Lymphocytes # Monocytes # Eosinophils # Basophils # Sodium 132 L Potassium 3.9 Chloride 102 Carbon Dioxide 19 BUN 22 H Creatinine 0.94 Est GFR ( Amer) > 60 Est GFR (Non-Af Amer) 57 L BUN/Creatinine Ratio 23 Glucose 215 H POC Glucose Calculated Osmolality 284 Calcium 8.2 L Total Bilirubin 1.6 H AST 57 H ALT 81 H Alkaline Phosphatase 433 H Serum Total Protein 5.1 L Albumin 1.7 L Globulin 3.4 Albumin/Globulin Ratio 0.5 L - ABG Interpretation ABG results: PT/INR, D-dimer PT 16.5 Seconds (9.4-12.1) H 05/09/16 10:35 Consult Discharge Plan - Plan Referrals: Chaz Puckett, DO [Primary Care Provider] - 05/17/16 10:15 am <Lam Gonzalez - Last Filed: 05/12/16 12:34> - Assessment and plan (1) SARAHY (acute kidney injury) Current Visit: Yes Status: Acute (2) Failure to thrive Current Visit: Yes Status: Acute Qualifiers: Failure to thrive age range: in adult Qualified Code(s): R62.7 - Adult failure to thrive (3) Goals of care, counseling/discussion Current Visit: Yes Status: Acute (4) Pancreatic cancer Current Visit: Yes Status: Chronic Qualifiers: Pancreatic malignancy location: unspecified Qualified Code(s): C25.9 - Malignant neoplasm of pancreas, unspecified (5) Constipation Current Visit: Yes Status: Acute Qualifiers: Constipation type: slow transit constipation Qualified Code(s): K59.01 - Slow transit constipation - Time Spent With Patient Total time spent is greater than 50% in coordination of care (as documented) at patient's floor/unit and/or counseling patient: - Constitutional Vitals: Abnormal lab results RBC 2.78 M/mcL (3.82-4.97) L 05/12/16 04:00 Hgb 8.3 g/dL (11.5-15.4) L 05/12/16 04:00 Hct 25.5 % (35.3-44.9) L 05/12/16 04:00 RDW 15.0 % (11.5-14.5) H 05/12/16 04:00 PT 16.5 Seconds (9.4-12.1) H 05/09/16 10:35 Sodium 132 mEq/L (136-145) L 05/12/16 04:00 BUN 22 mg/dL (7-20) H 05/12/16 04:00 Est GFR (Non-Af Amer) 57 (> 60) L 05/12/16 04:00 Glucose 215 mg/dL (70-99) H 05/12/16 04:00 POC Glucose 282 (58-89) H 05/11/16 20:24 Calcium 8.2 mg/dL (8.6-10.8) L 05/12/16 04:00 Magnesium 0.8 mg/dL (1.6-2.6) L 05/10/16 06:18 Total Bilirubin 1.6 mg/dL (0.2-1.2) H 05/12/16 04:00 AST 57 Units/L (5-34) H 05/12/16 04:00 ALT 81 Units/L (0-55) H 05/12/16 04:00 Alkaline Phosphatase 433 Units/L (38-126) H 05/12/16 04:00 Serum Total Protein 5.1 g/dL (6.0-8.3) L 05/12/16 04:00 Albumin 1.7 g/dL (3.5-5.0) L 05/12/16 04:00 Albumin/Globulin Ratio 0.5 (1.1-2.2) L 05/12/16 04:00 Urine Color Cambria (Yellow) A 05/10/16 01:35 Urine Clarity Cloudy (Clear) A 05/10/16 01:35 Urine Protein 30 mg/dL (Neg-Trace) H 05/10/16 01:35 Urine Glucose (UA) 100 mg/dL (Normal) H 05/10/16 01:35 Urine Bilirubin Large (Negative) H 05/10/16 01:35 Urine Urobilinogen 4.0 mg/dL (Normal) H 05/10/16 01:35 Ur Leukocyte Esterase Small (Negative) H 05/10/16 01:35 Urine Microscopic WBC 5-15 per hpf (0-3) H 05/10/16 01:35 Ur Squamous Epith Cells Many per lpf (None-Few) H 05/10/16 01:35 Urine Bacteria Moderate per hpf (None-Few) H 05/10/16 01:35 Ur Oval Fat Bodies Present (Not Present) A 05/10/16 01:35 Ur Culture Indicated? YES (NO) A 05/10/16 01:35 - Attending Attestation I examined this patient and my medical decision-making was reviewed with the EQUIPMENT HIRE MANAGER/PA/Advanced Practice Nurse/Resident Physician. I agree with the documented findings, disposition and treatment plan as described except to the extent set forth below. - Labs CBC & Chem 7: 05/12/16 04:00 05/12/16 04:00 Labs: Laboratory Results - last 24 hr 05/11/16 05/11/16 05/12/16 16:09 20:24 04:00 WBC 5.0 RBC 2.78 L Hgb 8.3 L Hct 25.5 L MCV 91.7 MCH 29.9 MCHC 32.5 RDW 15.0 H Plt Count 147 MPV 10.3 Immature Gran % 1.0 Seg Neutrophils % 74.8 Lymphocytes % 15.9 Monocytes % 8.3 Eosinophils % 0.0 Basophils % 0.0 Neutrophils # 3.8 Lymphocytes # 0.8 Monocytes # 0.4 Eosinophils # 0.0 Basophils # 0.0 Sodium Potassium Chloride Carbon Dioxide BUN Creatinine Est GFR ( Amer) Est GFR (Non-Af Amer) BUN/Creatinine Ratio Glucose POC Glucose 168 H 282 H Calculated Osmolality Calcium Total Bilirubin AST ALT Alkaline Phosphatase Serum Total Protein Albumin Globulin Albumin/Globulin Ratio 05/12/16 04:00 WBC RBC Hgb Hct MCV MCH MCHC RDW Plt Count MPV Immature Gran % Seg Neutrophils % Lymphocytes % Monocytes % Eosinophils % Basophils % Neutrophils # Lymphocytes # Monocytes # Eosinophils # Basophils # Sodium 132 L Potassium 3.9 Chloride 102 Carbon Dioxide 19 BUN 22 H Creatinine 0.94 Est GFR ( Amer) > 60 Est GFR (Non-Af Amer) 57 L BUN/Creatinine Ratio 23 Glucose 215 H POC Glucose Calculated Osmolality 284 Calcium 8.2 L Total Bilirubin 1.6 H AST 57 H ALT 81 H Alkaline Phosphatase 433 H Serum Total Protein 5.1 L Albumin 1.7 L Globulin 3.4 Albumin/Globulin Ratio 0.5 L - ABG Interpretation ABG results: PT/INR, D-dimer PT 16.5 Seconds (9.4-12.1) H 05/09/16 10:35
--- NOTE | 2016-05-12 15:07 | Internal Med Progress Note ---
Date of Encounter: 05/12/16 Time of Encounter: 10:00 - Assessment and plan (1) Failure to thrive Current Visit: Yes Status: Acute Assessment and plan: Possible due to pancreas cancer and chemotherapy. Oncology consult appreciated. We will continue IV fluid to avoid dehydration. Closely follow up chemistry and vitals. Nutrition consult also appreciated. Palliative care on case and megestrol added. Pt also has stent replaced by GI. Bilirubin is get down and uptake has improved after stent. Continue closely monitoring. Qualifiers: Failure to thrive age range: in adult Qualified Code(s): R62.7 - Adult failure to thrive (2) SARAHY (acute kidney injury) Current Visit: Yes Status: Acute Assessment and plan: Possibly due to dehydration. Improved after hydration. Continue to follow-up renal function (3) Pancreatic cancer Current Visit: Yes Status: Chronic Assessment and plan: Patient has pancreas cancer, on chemotherapy. Bile ductal stent replaced by GI. Will follow oncology and GI recommendation for further management. Qualifiers: Pancreatic malignancy location: unspecified Qualified Code(s): C25.9 - Malignant neoplasm of pancreas, unspecified (4) Hypertension Current Visit: No Status: Chronic Assessment and plan: High blood pressure medication hydrochlorothiazide and lisinopril is temporarily on hold on admission because BP is not high and the patient has acute renal injury. We will resume home medication as renal function improved. Closely monitor blood pressure. Qualifiers: Hypertension type: unspecified secondary hypertension Qualified Code(s): I15.9 - Secondary hypertension, unspecified; I15 - Secondary hypertension (5) Hypothyroidism Current Visit: No Status: Chronic Assessment and plan: Continue home medication levothyroxine Qualifiers: Hypothyroidism type: unspecified Qualified Code(s): E03.9 - Hypothyroidism , unspecified (6) Type 2 diabetes mellitus Current Visit: No Status: Chronic Assessment and plan: Patient was on metformin at home. We will hold metformin in the hospital and cover the patient with sliding scale. Follow-up glucose level Qualifiers: Diabetes mellitus complication status: with unspecified complications Diabetes mellitus intermodal dispatcher insulin use: without intermodal dispatcher use Qualified Code( s): E11.8 - Type 2 diabetes mellitus with unspecified complications (7) DVT prophylaxis Current Visit: No Status: Acute Assessment and plan: Heparin subcutaneously (8) UTI (urinary tract infection) Current Visit: Yes Status: Acute Assessment and plan: On Cipro by mouth for sensitivity of urine culture. Qualifiers: Urinary tract infection type: acute cystitis Hematuria presence: without hematuria Qualified Code(s): N30.00 - Acute cystitis without hematuria - Time Spent With Patient 25 - 35 minutes - Subjective Interval history: Patient is a 86-year-old female admitted for failure to thrive. Past medical history is significant for pancreas cancer, anemia, diabetes, hypertension, thyroid disease. Patient was seen and examined. She is still weak, improved uptake with finished 50% breakfast and lunch, in no acute distress. Bilirubin level decreased after stenting. Paliative care on case, Megestrol added. We will continue hydrate patient, and closely follow up chemistry and vitals. Urine culture positive for Enterococcus faecalis, Cipro by mouth was added per sensitivity. We will consider discharge patient home if bilirubin level continue get down and the patient has a better uptake. Need arrange home health per PT recommendation. - Constitutional Vitals: Temp Pulse Resp BP Pulse Ox 97.5 F L 71 18 106/60 98 05/12/16 11:51 05/12/16 11:51 05/12/16 11:51 05/12/16 11:51 05/12/16 11:51 General appearance: Present: A&O X 3, pleasant, underweight - Head Head exam: Present: atraumatic, normocephalic - Eye Eye exam: Present: PERRL, conjuntiva pink, sclera anicteric Pupils: Present: PERRL - Neck Neck exam general surgery: Present: supple, trachea midline. Absent: lymphadenopathy - Respiratory Respiratory exam: Present: CTAB. Absent: accessory muscle use, rales, rhonchi, wheezes - Cardiovascular Cardiovascular exam: Present: RRR, +S1, +S2. Absent: diastolic murmur, gallop, rubs, systolic murmur - GI/Abdominal GI/Abdominal exam: Present: normal bowel sounds, soft, no peritoneal signs. Absent: distended, tenderness - Extremities Exam Extremities exam: Present: warm, radial pulses palpable and symetrical. Absent : calf tenderness, cyanotic, pedal edema - Neurological Exam Neurological exam: Present: CN II-XII intact, oriented X3, no focal deficits. Absent: pronater drift, facial droop, speech deficit - Skin Skin exam: Present: dry, intact Internal Medicine: Result - Labs CBC & Chem 7: 05/12/16 04:00 05/12/16 04:00 Labs: Short CBC 05/12/16 Range/Units 04:00 WBC 5.0 (4.3-11.1) K/mcL Hgb 8.3 L (11.5-15.4) g/dL Hct 25.5 L (35.3-44.9) % Plt Count 147 (140-400) K/mcL Neutrophils # 3.8 (1.6-8.9) K/mcL BMP 05/12/16 04:00 Sodium 132 L Potassium 3.9 Chloride 102 Carbon Dioxide 19 BUN 22 H Creatinine 0.94 Glucose 215 H Calcium 8.2 L Liver Function 05/12/16 Range/Units 04:00 Total Bilirubin 1.6 H (0.2-1.2) mg/dL AST 57 H (5-34) Units/L ALT 81 H (0-55) Units/L Alkaline Phosphatase 433 H (38-126) Units/L Albumin 1.7 L (3.5-5.0) g/dL - ABG Interpretation ABG results: PT/INR, D-dimer PT 16.5 Seconds (9.4-12.1) H 05/09/16 10:35 - VTE Documentation of Mechanical Device: Intermittent pneumatic compression device Consult Discharge Plan - Plan Referrals: Chaz Puckett DO [Primary Care Provider] - 05/17/16 10:15 am
[2016-05-12] MEDS: hydroCHLOROthiazide 25 MG TABLET PO SCH (17:06)
--- NOTE | 2016-05-12 17:52 | Oncology Inp Progress Note ---
Date of Encounter: 05/12/16 Time of Encounter: 17:25 (1) Pancreatic cancer Current Visit: Yes Status: Chronic Assessment and plan: The patient is comfortable and in no acute distress s/p ERCP with 2 stent removal and replacement. The patient reiterated her desire for aggressive treatment for her pancreatic cancer as outpatient. No family members present at time of assessment. She had chemo scheduled for today, but was cancelled due to inpatient status and scope. As outpatient, we would like to see patient and family for jovan discussion of prognosis and further treatment discussions. Continue supportive care. She will need an appointment to see Dr Aguirre at [facility] within 5 days of discharge. From our perspective, ok to discharge once medically stable. Qualifiers: Pancreatic malignancy location: unspecified Qualified Code(s): C25.9 - Malignant neoplasm of pancreas, unspecified Oncology: Subj Interval history: Patient is alert and s/p ERCP with 2 stent removal and replacement. Resting comfortable sitting in bed watching TV - Constitutional Vitals: Vital Signs Temp Pulse Resp BP Pulse Ox 05/12/16 15:25 97.6 F 70 18 117/49 99 05/12/16 11:51 97.5 F L 71 18 106/60 98 05/12/16 07:44 97.4 F L 59 17 146/71 99 05/11/16 23:26 97.3 F L 64 15 155/52 100 05/11/16 20:00 130/77 99 05/11/16 19:15 97.5 F L 70 15 130/77 99 Intake and Output 05/12/16 05/12/16 05/12/16 07:59 15:59 23:59 Intake Total 1000 / 1000 480 / 480 Balance 1000 / 1000 480 / 480 Intake: IV Fluids 1000 / 1000 0.9 % Sodium Chloride 1, 1000 / 1000 000 ML @ 60 mls/hr IVC . [id number] MARILYN Rx#: [id number] Oral 480 / 480 Other: Meal Lunch Percent of Meal Consumed 50% # Voids 1 Weight 57.019 kg Blood Glucose* 191 222 291 Patient Weight 05/12/16 23:59 Weight 57.019 kg General appearance: cooperative, no acute distress - Head Head exam: Present: atraumatic, normal inspection - Eye Eye exam: Present: normal appearance, PERRL - ENT ENT exam: Present: mucous membranes moist - Neck Neck exam: Present: full ROM, normal inspection - Respiratory Respiratory exam: Present: CTAB - Cardiovascular Cardiovascular exam: Present: RRR, +S1, +S2 - GI/Abdominal GI/Abdominal exam: Present: normal bowel sounds, soft - Extremities Exam Extremities exam: Present: full ROM, normal inspection - Neurological Exam Neurological exam: Present: alert, CN II-XII intact, no focal deficits - Psychiatric Psychiatric exam: Present: normal affect, normal mood - Skin Skin exam: Present: dry, intact, warm Oncology: Obj Data - Labs CBC & Chem 7: 05/12/16 04:00 05/12/16 04:00 Labs: Laboratory Results - last 24 hr 05/11/16 05/12/16 05/12/16 20:24 04:00 04:00 WBC 5.0 RBC 2.78 L Hgb 8.3 L Hct 25.5 L MCV 91.7 MCH 29.9 MCHC 32.5 RDW 15.0 H Plt Count 147 MPV 10.3 Immature Gran % 1.0 Seg Neutrophils % 74.8 Lymphocytes % 15.9 Monocytes % 8.3 Eosinophils % 0.0 Basophils % 0.0 Neutrophils # 3.8 Lymphocytes # 0.8 Monocytes # 0.4 Eosinophils # 0.0 Basophils # 0.0 Sodium 132 L Potassium 3.9 Chloride 102 Carbon Dioxide 19 BUN 22 H Creatinine 0.94 Est GFR ( Amer) > 60 Est GFR (Non-Af Amer) 57 L BUN/Creatinine Ratio 23 Glucose 215 H POC Glucose 282 H Calculated Osmolality 284 Calcium 8.2 L Total Bilirubin 1.6 H AST 57 H ALT 81 H Alkaline Phosphatase 433 H Serum Total Protein 5.1 L Albumin 1.7 L Globulin 3.4 Albumin/Globulin Ratio 0.5 L 05/12/16 05/12/16 05/12/16 07:49 11:55 16:33 WBC RBC Hgb Hct MCV MCH MCHC RDW Plt Count MPV Immature Gran % Seg Neutrophils % Lymphocytes % Monocytes % Eosinophils % Basophils % Neutrophils # Lymphocytes # Monocytes # Eosinophils # Basophils # Sodium Potassium Chloride Carbon Dioxide BUN Creatinine Est GFR ( Amer) Est GFR (Non-Af Amer) BUN/Creatinine Ratio Glucose POC Glucose 191 H 222 H 291 H Calculated Osmolality Calcium Total Bilirubin AST ALT Alkaline Phosphatase Serum Total Protein Albumin Globulin Albumin/Globulin Ratio - ABG Interpretation ABG results: PT/INR, D-dimer PT 16.5 Seconds (9.4-12.1) H 05/09/16 10:35 Consult Discharge Plan - Plan Referrals: Chaz Puckett DO [Primary Care Provider] - 05/17/16 10:15 am
[2016-05-13 04:38] LABS: Eosinophils % 0.1 %; Hemoglobin 8.3 g/dL (11.5-15.4); Immature Granulocytes % 0.7 % (0-4); Lymphocytes # 1.5 K/mcL (0.6-4.6); Lymphocytes % 19.8 %; Mean Corpuscular HGB Conc 33.2 g/dL (31.6-35.5); Mean Corpuscular Hemoglobin 29.9 pg (28.0-33.3); Mean Corpuscular Volume 89.9 fL (83.0-100.0); Mean Platelet Volume 10.2 fL (9.4-12.4); Monocytes # 0.7 K/mcL (0.0-1.3); Monocytes % 9.7 %; Neutrophils # 5.2 K/mcL (1.6-8.9); Platelet Count 201 K/mcL (140-400); Red Blood Count 2.78 M/mcL (3.82-4.97); Red Cell Distribution Width 15.2 % (11.5-14.5); Segmented Neutrophils % 69.7 %
[2016-05-13 04:57] LABS: Alanine Aminotransferase 62 Units/L (0-55); Albumin/Globulin Ratio 0.5 (1.1-2.2); Alkaline Phosphatase 387 Units/L (38-126); Aspartate Amino Transferase 50 Units/L (5-34); BUN/Creatinine Ratio 24 (6-26); Bilirubin,Total 0.6 mg/dL (0.2-1.2); Blood Urea Nitrogen 23 mg/dL (7-20); Calcium 7.9 mg/dL (8.6-10.8); Carbon Dioxide 20 mEq/L (19-29); Chloride 103 mEq/L (98-109); Glucose 146 mg/dL (70-99); Osmolality,Calculated 280 (280-300); Potassium 3.3 mEq/L (3.5-4.5); Sodium 132 mEq/L (136-145); Total Protein 4.6 g/dL (6.0-8.3); eGFR For African Americans > 60 (> 60); eGFR For Non-African Americans 55 (> 60)
[2016-05-13 05:03] LABS: Albumin 1.6 g/dL (3.5-5.0)
[2016-05-13] MEDS: Famotidine 20 MG/2 ML VIAL IVP SCH (06:42)
[2016-05-13] MEDS: *HR* Heparin 5,000 UNIT/ML VIAL SQ SCH (06:42)
[2016-05-13] MEDS: Insulin LISPRO 300 UNITS/3 ML VIAL SQ SCH (07:38)
[2016-05-13] MEDS ORDERED: Potassium Chloride Elixir 20 MEQ/15 ML UDC PO ONE (07:42)
[2016-05-13] MEDS: Aspirin 81 MG TAB.CHEW PO SCH (09:01)
[2016-05-13] MEDS: Megestrol Acetate 400 MG/10 ML UDC PO SCH (09:07)
[2016-05-13] MEDS: Lisinopril 20 MG TABLET PO SCH (09:08)
[2016-05-13] MEDS: Sennosides/Docusate Sodium TABLET PO SCH (09:08)
--- NOTE | 2016-05-13 10:22 | Palliative Progress Note ---
<Kevin Larios - Last Filed: 05/13/16 10:19> Date of Encounter: 05/13/16 Time of Encounter: 10:19 - Assessment and plan (1) Goals of care, counseling/discussion Current Visit: Yes Status: Acute Assessment and plan: CODE STATUS DNR comfort care, patient does however wish to continue getting any and all therapies available for her for her pancreatic cancer. Her pain/nausea/bowel regimen all appear to be well-controlled at this time. Palliative care will sign off of this patient. Please re-consult PRN. Thank you for allowing us to assist in the care of this patient. (2) SARAHY (acute kidney injury) Current Visit: Yes Status: Acute Assessment and plan: back to baseline. continue to monitor (3) Constipation Current Visit: Yes Status: Acute Assessment and plan: bowel regimen initiated 05/11/16. patient states she has had another BM yesterday, although none of the BM's have been recorded by nursing. Pt. does insist that she has been having BM's. She has been taking senna plus BID. continue current therapy. Qualifiers: Constipation type: slow transit constipation Qualified Code(s): K59.01 - Slow transit constipation (4) Failure to thrive Current Visit: Yes Status: Acute Assessment and plan: Megace started 05/11/16. Pt. ate most of her meals yesterday. continue Megace Qualifiers: Failure to thrive age range: in adult Qualified Code(s): R62.7 - Adult failure to thrive (5) Pancreatic cancer Current Visit: Yes Status: Chronic Assessment and plan: She is pursuing full therapy for her cancer at this time. Qualifiers: Pancreatic malignancy location: unspecified Qualified Code(s): C25.9 - Malignant neoplasm of pancreas, unspecified - Time Spent With Patient Total time spent is greater than 50% in coordination of care (as documented) at patient's floor/unit and/or counseling patient: - Subjective Interval history: Patient seen and examined. She is sitting on the side of the bed taking her am meds. Her meal was next to her and she was preparing to eat it after her meds. Remains very stoic. Stated she did have a BM yesterday, although it has not been recorded by nursing. Does not have much to say. She denies any pain or discomfort. She denies nausea. Hopes to be discharged home soon. - Constitutional Vitals: Abnormal lab results RBC 2.78 M/mcL (3.82-4.97) L 05/13/16 04:10 Hgb 8.3 g/dL (11.5-15.4) L 05/13/16 04:10 Hct 25.0 % (35.3-44.9) L 05/13/16 04:10 RDW 15.2 % (11.5-14.5) H 05/13/16 04:10 PT 16.5 Seconds (9.4-12.1) H 05/09/16 10:35 Sodium 132 mEq/L (136-145) L 05/13/16 04:10 Potassium 3.3 mEq/L (3.5-4.5) L 05/13/16 04:10 BUN 23 mg/dL (7-20) H 05/13/16 04:10 Est GFR (Non-Af Amer) 55 (> 60) L 05/13/16 04:10 Glucose 146 mg/dL (70-99) H 05/13/16 04:10 POC Glucose 145 (58-89) H 05/13/16 04:47 Calcium 7.9 mg/dL (8.6-10.8) L 05/13/16 04:10 Magnesium 0.8 mg/dL (1.6-2.6) L 05/10/16 06:18 AST 50 Units/L (5-34) H 05/13/16 04:10 ALT 62 Units/L (0-55) H 05/13/16 04:10 Alkaline Phosphatase 387 Units/L (38-126) H 05/13/16 04:10 Serum Total Protein 4.6 g/dL (6.0-8.3) L 05/13/16 04:10 Albumin 1.6 g/dL (3.5-5.0) L 05/13/16 04:10 Albumin/Globulin Ratio 0.5 (1.1-2.2) L 05/13/16 04:10 Urine Color Dunn (Yellow) A 05/10/16 01:35 Urine Clarity Cloudy (Clear) A 05/10/16 01:35 Urine Protein 30 mg/dL (Neg-Trace) H 05/10/16 01:35 Urine Glucose (UA) 100 mg/dL (Normal) H 05/10/16 01:35 Urine Bilirubin Large (Negative) H 05/10/16 01:35 Urine Urobilinogen 4.0 mg/dL (Normal) H 05/10/16 01:35 Ur Leukocyte Esterase Small (Negative) H 05/10/16 01:35 Urine Microscopic WBC 5-15 per hpf (0-3) H 05/10/16 01:35 Ur Squamous Epith Cells Many per lpf (None-Few) H 05/10/16 01:35 Urine Bacteria Moderate per hpf (None-Few) H 05/10/16 01:35 Ur Oval Fat Bodies Present (Not Present) A 05/10/16 01:35 Ur Culture Indicated? YES (NO) A 05/10/16 01:35 General appearance: Present: no acute distress, thin - Respiratory Respiratory exam: Present: decreased breath sounds, wheezes - Cardiovascular Cardiovascular exam: Present: RRR - GI/Abdominal GI/Abdominal exam: Present: normal bowel sounds - Neurological Exam Neurological exam: Present: alert, oriented X3 - Skin Skin exam: Present: dry, warm Palliative Quality Palliative Quality: Screen for Code Status: Yes, Screen for Goals of Care: Yes, Screen for Pain: Yes, If Pain Regimen Started, Initiate Bowel Regimen: Yes, Screen for Nausea/Vomitting: Yes - Labs CBC & Chem 7: 05/13/16 04:10 05/13/16 04:10 Labs: Laboratory Results - last 24 hr 05/12/16 05/12/16 05/12/16 07:49 11:55 16:33 WBC RBC Hgb Hct MCV MCH MCHC RDW Plt Count MPV Immature Gran % Seg Neutrophils % Lymphocytes % Monocytes % Eosinophils % Basophils % Neutrophils # Lymphocytes # Monocytes # Eosinophils # Basophils # Sodium Potassium Chloride Carbon Dioxide BUN Creatinine Est GFR ( Amer) Est GFR (Non-Af Amer) BUN/Creatinine Ratio Glucose POC Glucose 191 H 222 H 291 H Calculated Osmolality Calcium Total Bilirubin AST ALT Alkaline Phosphatase Serum Total Protein Albumin Globulin Albumin/Globulin Ratio 05/12/16 05/13/16 05/13/16 20:31 04:10 04:10 WBC 7.4 RBC 2.78 L Hgb 8.3 L Hct 25.0 L MCV 89.9 MCH 29.9 MCHC 33.2 RDW 15.2 H Plt Count 201 MPV 10.2 Immature Gran % 0.7 Seg Neutrophils % 69.7 Lymphocytes % 19.8 Monocytes % 9.7 Eosinophils % 0.1 Basophils % 0.0 Neutrophils # 5.2 Lymphocytes # 1.5 Monocytes # 0.7 Eosinophils # 0.0 Basophils # 0.0 Sodium 132 L Potassium 3.3 L Chloride 103 Carbon Dioxide 20 BUN 23 H Creatinine 0.96 Est GFR ( Amer) > 60 Est GFR (Non-Af Amer) 55 L BUN/Creatinine Ratio 24 Glucose 146 H POC Glucose 315 H Calculated Osmolality 280 Calcium 7.9 L Total Bilirubin 0.6 AST 50 H ALT 62 H Alkaline Phosphatase 387 H Serum Total Protein 4.6 L Albumin 1.6 L Globulin 3.0 Albumin/Globulin Ratio 0.5 L 05/13/16 04:47 WBC RBC Hgb Hct MCV MCH MCHC RDW Plt Count MPV Immature Gran % Seg Neutrophils % Lymphocytes % Monocytes % Eosinophils % Basophils % Neutrophils # Lymphocytes # Monocytes # Eosinophils # Basophils # Sodium Potassium Chloride Carbon Dioxide BUN Creatinine Est GFR ( Amer) Est GFR (Non-Af Amer) BUN/Creatinine Ratio Glucose POC Glucose 145 H Calculated Osmolality Calcium Total Bilirubin AST ALT Alkaline Phosphatase Serum Total Protein Albumin Globulin Albumin/Globulin Ratio - ABG Interpretation ABG results: PT/INR, D-dimer PT 16.5 Seconds (9.4-12.1) H 05/09/16 10:35 Consult Discharge Plan - Plan Referrals: Chaz Puckett DO [Primary Care Provider] - 05/17/16 10:15 am Merary Aguirre MD [Partnered Physician] - (within 5 days) <Lam Gonzalez - Last Filed: 05/13/16 11:12> - Assessment and plan (1) SARAHY (acute kidney injury) Current Visit: Yes Status: Acute (2) Failure to thrive Current Visit: Yes Status: Acute Qualifiers: Failure to thrive age range: in adult Qualified Code(s): R62.7 - Adult failure to thrive (3) Goals of care, counseling/discussion Current Visit: Yes Status: Acute (4) Pancreatic cancer Current Visit: Yes Status: Chronic Qualifiers: Pancreatic malignancy location: unspecified Qualified Code(s): C25.9 - Malignant neoplasm of pancreas, unspecified (5) Constipation Current Visit: Yes Status: Acute Qualifiers: Constipation type: slow transit constipation Qualified Code(s): K59.01 - Slow transit constipation - Time Spent With Patient Total time spent is greater than 50% in coordination of care (as documented) at patient's floor/unit and/or counseling patient: - Constitutional Vitals: Abnormal lab results RBC 2.78 M/mcL (3.82-4.97) L 05/13/16 04:10 Hgb 8.3 g/dL (11.5-15.4) L 05/13/16 04:10 Hct 25.0 % (35.3-44.9) L 05/13/16 04:10 RDW 15.2 % (11.5-14.5) H 05/13/16 04:10 PT 16.5 Seconds (9.4-12.1) H 05/09/16 10:35 Sodium 132 mEq/L (136-145) L 05/13/16 04:10 Potassium 3.3 mEq/L (3.5-4.5) L 05/13/16 04:10 BUN 23 mg/dL (7-20) H 05/13/16 04:10 Est GFR (Non-Af Amer) 55 (> 60) L 05/13/16 04:10 Glucose 146 mg/dL (70-99) H 05/13/16 04:10 POC Glucose 145 (58-89) H 05/13/16 04:47 Calcium 7.9 mg/dL (8.6-10.8) L 05/13/16 04:10 Magnesium 0.8 mg/dL (1.6-2.6) L 05/10/16 06:18 AST 50 Units/L (5-34) H 05/13/16 04:10 ALT 62 Units/L (0-55) H 05/13/16 04:10 Alkaline Phosphatase 387 Units/L (38-126) H 05/13/16 04:10 Serum Total Protein 4.6 g/dL (6.0-8.3) L 05/13/16 04:10 Albumin 1.6 g/dL (3.5-5.0) L 05/13/16 04:10 Albumin/Globulin Ratio 0.5 (1.1-2.2) L 05/13/16 04:10 Urine Color Dunn (Yellow) A 05/10/16 01:35 Urine Clarity Cloudy (Clear) A 05/10/16 01:35 Urine Protein 30 mg/dL (Neg-Trace) H 05/10/16 01:35 Urine Glucose (UA) 100 mg/dL (Normal) H 05/10/16 01:35 Urine Bilirubin Large (Negative) H 05/10/16 01:35 Urine Urobilinogen 4.0 mg/dL (Normal) H 05/10/16 01:35 Ur Leukocyte Esterase Small (Negative) H 05/10/16 01:35 Urine Microscopic WBC 5-15 per hpf (0-3) H 05/10/16 01:35 Ur Squamous Epith Cells Many per lpf (None-Few) H 05/10/16 01:35 Urine Bacteria Moderate per hpf (None-Few) H 05/10/16 01:35 Ur Oval Fat Bodies Present (Not Present) A 05/10/16 01:35 Ur Culture Indicated? YES (NO) A 05/10/16 01:35 - Attending Attestation I examined this patient and my medical decision-making was reviewed with the HAMPER [employer]KER/PA/Advanced Practice Nurse/Resident Physician. I agree with the documented findings, disposition and treatment plan as described except to the extent set forth below. - Labs CBC & Chem 7: 05/13/16 04:10 05/13/16 04:10 Labs: Laboratory Results - last 24 hr 05/12/16 05/12/16 05/12/16 07:49 11:55 16:33 WBC RBC Hgb Hct MCV MCH MCHC RDW Plt Count MPV Immature Gran % Seg Neutrophils % Lymphocytes % Monocytes % Eosinophils % Basophils % Neutrophils # Lymphocytes # Monocytes # Eosinophils # Basophils # Sodium Potassium Chloride Carbon Dioxide BUN Creatinine Est GFR ( Amer) Est GFR (Non-Af Amer) BUN/Creatinine Ratio Glucose POC Glucose 191 H 222 H 291 H Calculated Osmolality Calcium Total Bilirubin AST ALT Alkaline Phosphatase Serum Total Protein Albumin Globulin Albumin/Globulin Ratio 05/12/16 05/13/16 05/13/16 20:31 04:10 04:10 WBC 7.4 RBC 2.78 L Hgb 8.3 L Hct 25.0 L MCV 89.9 MCH 29.9 MCHC 33.2 RDW 15.2 H Plt Count 201 MPV 10.2 Immature Gran % 0.7 Seg Neutrophils % 69.7 Lymphocytes % 19.8 Monocytes % 9.7 Eosinophils % 0.1 Basophils % 0.0 Neutrophils # 5.2 Lymphocytes # 1.5 Monocytes # 0.7 Eosinophils # 0.0 Basophils # 0.0 Sodium 132 L Potassium 3.3 L Chloride 103 Carbon Dioxide 20 BUN 23 H Creatinine 0.96 Est GFR ( Amer) > 60 Est GFR (Non-Af Amer) 55 L BUN/Creatinine Ratio 24 Glucose 146 H POC Glucose 315 H Calculated Osmolality 280 Calcium 7.9 L Total Bilirubin 0.6 AST 50 H ALT 62 H Alkaline Phosphatase 387 H Serum Total Protein 4.6 L Albumin 1.6 L Globulin 3.0 Albumin/Globulin Ratio 0.5 L 05/13/16 04:47 WBC RBC Hgb Hct MCV MCH MCHC RDW Plt Count MPV Immature Gran % Seg Neutrophils % Lymphocytes % Monocytes % Eosinophils % Basophils % Neutrophils # Lymphocytes # Monocytes # Eosinophils # Basophils # Sodium Potassium Chloride Carbon Dioxide BUN Creatinine Est GFR ( Amer) Est GFR (Non-Af Amer) BUN/Creatinine Ratio Glucose POC Glucose 145 H Calculated Osmolality Calcium Total Bilirubin AST ALT Alkaline Phosphatase Serum Total Protein Albumin Globulin Albumin/Globulin Ratio - ABG Interpretation ABG results: PT/INR, D-dimer PT 16.5 Seconds (9.4-12.1) H 05/09/16 10:35
--- NOTE | 2016-05-13 11:14 | Event Note ---
Date of Encounter: 05/13/16 Time of Encounter: 11:13 Ms. Montero is having bowel movements per her report. He is using little to no medications, and therefore palliative care is really not providing any dramatic care at this time. CODE STATUS is established and she wishes to continue getting therapy for her pancreatic cancer. We will therefore sign off but please reconsult if there is anything we can do to help.
--- NOTE | 2016-05-13 11:16 | Discharge Summary ---
Date of Encounter: 05/13/16 Time of Encounter: 09:00 - Discharge Diagnosis (1) Failure to thrive Priority: Primary Status: Acute Qualifiers: Qualified Code(s): R62.7 - Adult failure to thrive (2) SARAHY (acute kidney injury) Priority: Primary Status: Acute (3) Pancreatic cancer Priority: Secondary Status: Chronic Qualifiers: Qualified Code(s): C25.9 - Malignant neoplasm of pancreas, unspecified (4) Hypertension Priority: Secondary Status: Chronic Qualifiers: Qualified Code(s): I15.9 - Secondary hypertension, unspecified; I15 - Secondary hypertension (5) Hypothyroidism Priority: Secondary Status: Chronic Qualifiers: Qualified Code(s): E03.9 - Hypothyroidism, unspecified (6) Type 2 diabetes mellitus Priority: Secondary Status: Chronic Qualifiers: Qualified Code(s): E11.8 - Type 2 diabetes mellitus with unspecified complications (7) DVT prophylaxis Priority: Secondary Status: Acute (8) UTI (urinary tract infection) Priority: Primary Status: Acute Qualifiers: Qualified Code(s): N30.00 - Acute cystitis without hematuria - Discharge Medications Prescriptions: Ciprofloxacin [Cipro] 250 mg PO BID #14 tablet Citalopram [CeleXA] 30 mg PO DAILY #30 tablet Megestrol Acetate [Megace] 400 mg PO DAILY #30 [facility] [facility] [place] Medications: Aspirin 81 mg PO DAILY 03/18/16 [History] Levothyroxine [Synthroid] 88 mcg PO DAILY 03/18/16 [History] Metformin [Glucophage] 500 mg PO BID 03/18/16 [History] Omeprazole [PriLOSEC] 40 mg PO DAILY 03/18/16 [History] Pravastatin Sodium [Pravachol] 40 mg PO DAILY 03/18/16 [History] Lisinopril [Zestril] 20 mg PO DAILY #30 tablet 03/24/16 [Rx] Ondansetron ODT [Zofran ODT] 4 mg SL Q6HR PRN #15 tab.rapdis 03/24/16 [Rx] OxyCODONE Immed Rel [Roxicodone 5 MG] 5 mg PO Q6HR PRN #25 tablet 03/24/16 [Rx] Promethazine [Phenergan] 12.5 mg PO Q6HR PRN #30 tablet 03/24/16 [Rx] Ondansetron HCl [Zofran] 4 mg PO Q6H PRN #30 tablet 04/11/16 [Rx] Prochlorperazine Maleate [Compazine] 10 mg PO Q6HR #30 tablet 04/11/16 [Rx] Docusate [Colace] 100 mg PO DAILY PRN 05/09/16 [History] Hydrochlorothiazide 12.5 mg PO Q48H 05/09/16 [History] Loratadine [Claritin] 10 mg PO DAILY 05/09/16 [History] Multivit-Min/Iron/Folic/Lutein [Centrum Silver Women Tablet] 1 tab PO DAILY 09/17 [History] Ciprofloxacin [Cipro] 250 mg PO BID #14 tablet 05/13/16 [Rx] Citalopram [CeleXA] 30 mg PO DAILY #30 tablet 05/13/16 [Rx] Megestrol Acetate [Megace] 400 mg PO DAILY #30 udc 05/13/16 [Rx] Allergies/Adverse Reactions: Allergies No Known Allergies Allergy (Verified 03/28/16 07:55) Date of admission: 05/11/16 14:54 Primary care physician: Chaz Puckett Discharging clinician: Caesar Ivy Anticipated date of discharge: 05/13/16 - Patient Status Disposition: Home Health Service Condition: Fair Functional capacity at discharge: uses cane/walker - Discharge Instructions Follow Up With: Chaz Puckett DO [Primary Care Provider] - 05/17/16 10:15 am Merary Aguirre MD [Partnered Physician] - (within 5 days) - Diet and Activity Activity: increase activity as tolerated Diet: diabetic diet (With ensure supplement) Interval History: Ms. Montero is a 86 year old female past medical history diabetes, hypertension , GERD, hypothyroidism, pancreatic cancer diagnosed in March 2016. She is undergoing chemotherapy, her oncologist is Dr. Calabrese. The patient presented to our emergency department complaining of progressive weakness, dizziness, poor oral intake. She denies recent trauma, loss of consciousness, fever, chest pain , shortness of breath. She was seen and examined at bedside, her daughter was present during this encounter. She was initially evaluated in our emergency department, she was found to have a drop in her hemoglobin from 13.2-9.7, additionally some acute kidney injury. Her chest x-ray was essentially unremarkable. The patient was admitted for further management and workup. The patient states that her CODE STATUS is DNR/DNI comfort care. Hospital course: Ms. Montero is a 86 year old female with history of pancreas cancer on chemotherapy admitted for failure to thrive. She was treated with IV fluid, GI , palliative Care and nutrition consult was called. Patient was replaced stent by GI and MRCP. Megace was placed by palliative care. Ensure supplement was added by lead tinner. After treatment, patient had increased intake. Her bilirubin level is getting down to normal. AST ALT also trended down. Dehydration and acute renal injury has improved the after treatment. Drop of hemoglobin noticed, which is most likely dilutional after correction of dehydration. Hemoglobin is stable for the following 3 days and there is no signs of bleeding. Patient also has UTI, urine culture done, shows enterococcus sensitive to Cipro. Will give patient by mouth Cipro for 7 days. Patient will discharge home with home health, continue follow-up with PCP, GI, and oncology as outpatient. I saw and examined the patient today. She is awake alert, oriented 3, pleasant , in no acute distress. No fever, vitals are stable. WBC get down to normal. Mild hypokalemia we will give her a supplement before discharge. Patient is stable to discharge home with home health. Ensure prescription was given patient per RD recommendation. - Time Spent with Patient Total time spent providing and/or coordinating discharge services: 40 minutes Greater than 30 minutes - Constitutional Vitals: Temp Pulse Resp BP Pulse Ox 99.3 F 82 15 116/53 95 05/13/16 07:17 05/13/16 07:05/13/16 07:17 05/13/16 07:05/13/16 07:17 General appearance: Present: A&O X 3, pleasant, underweight - Head Head exam: Present: atraumatic, normocephalic - Eye Eye exam: Present: PERRL, conjuntiva pink, sclera anicteric Pupils: Present: PERRL - Neck Neck exam general surgery: Present: supple, trachea midline. Absent: lymphadenopathy - Respiratory Respiratory exam: Present: CTAB. Absent: accessory muscle use, rales, rhonchi, wheezes - Cardiovascular Cardiovascular exam: Present: RRR, +S1, +S2. Absent: diastolic murmur, gallop, rubs, systolic murmur - GI/Abdominal GI/Abdominal exam: Present: normal bowel sounds, soft, no peritoneal signs. Absent: distended, tenderness - Extremities Exam Extremities exam: Present: warm, radial pulses palpable and symetrical. Absent : calf tenderness, cyanotic, pedal edema - Neurological Exam Neurological exam: Present: CN II-XII intact, oriented X3, no focal deficits. Absent: pronater drift, facial droop, speech deficit - Skin Skin exam: Present: dry, intact - VTE Documentation of Mechanical Device: Intermittent pneumatic compression device
[2016-05-13 11:20] VITALS: BP 106/67
--- NOTE | 2016-05-13 11:29 | Physician Discharge Referral ---
Home Health/Hosp Referral Info Provider in Charge Post Discharge: PCP - Diagnosis (1) Failure to thrive Status: Acute (2) SARAHY (acute kidney injury) Status: Acute (3) Pancreatic cancer Status: Chronic (4) Hypertension Status: Chronic (5) Hypothyroidism Status: Chronic (6) Type 2 diabetes mellitus Status: Chronic (7) DVT prophylaxis Status: Acute (8) UTI (urinary tract infection) Status: Acute - Respiratory Orders Smoking Cessation: Smoking cessation has been advised. For more information, call the [place] Tobacco Quit Line at 5-167-YHPV-NOW. - Diet/Nutrition Diet/Nutrition Orders: No Concentrated Sweets (DM diet with ensure supplement) - Activity Activity Orders: Walker - Services Needed Following services are medically necessary services: Nursing, Home Health Aide, Physical Therapy, Occupational Therapy - Transfer Medications Prescriptions: Ciprofloxacin [Cipro] 250 mg PO BID #14 tablet Citalopram [CeleXA] 30 mg PO DAILY #30 tablet Megestrol Acetate [Megace] 400 mg PO DAILY #30 c Home Medications: Aspirin 81 mg PO DAILY 03/18/16 [History] Levothyroxine [Synthroid] 88 mcg PO DAILY 03/18/16 [History] Metformin [Glucophage] 500 mg PO BID 03/18/16 [History] Omeprazole [PriLOSEC] 40 mg PO DAILY 03/18/16 [History] Pravastatin Sodium [Pravachol] 40 mg PO DAILY 03/18/16 [History] Lisinopril [Zestril] 20 mg PO DAILY #30 tablet 03/24/16 [Rx] Ondansetron ODT [Zofran ODT] 4 mg SL Q6HR PRN #15 tab.rapdis 03/24/16 [Rx] OxyCODONE Immed Rel [Roxicodone 5 MG] 5 mg PO Q6HR PRN #25 tablet 03/24/16 [Rx] Promethazine [Phenergan] 12.5 mg PO Q6HR PRN #30 tablet 03/24/16 [Rx] Ondansetron HCl [Zofran] 4 mg PO Q6H PRN #30 tablet 04/11/16 [Rx] Prochlorperazine Maleate [Compazine] 10 mg PO Q6HR #30 tablet 04/11/16 [Rx] Docusate [Colace] 100 mg PO DAILY PRN 05/09/16 [History] Hydrochlorothiazide 12.5 mg PO Q48H 05/09/16 [History] Loratadine [Claritin] 10 mg PO DAILY 05/09/16 [History] Multivit-Min/Iron/Folic/Lutein [Centrum Silver Women Tablet] 1 tab PO DAILY 09/17 [History] Ciprofloxacin [Cipro] 250 mg PO BID #14 tablet 05/13/16 [Rx] Citalopram [CeleXA] 30 mg PO DAILY #30 tablet 05/13/16 [Rx] Megestrol Acetate [Megace] 400 mg PO DAILY #30 udc 05/13/16 [Rx] Allergies/Adverse Reactions: Allergies No Known Allergies Allergy (Verified 03/28/16 07:55) Certification: Further, I certify that my clinical findings support that this patient is homebound (i.e. absences from home require considerable and taxing effort and are for medical reasons or spiritism services or infrequently or short duration when for other reasons) because: Homebound Reason: Patient requires assistance of a person or device to safely leave home Attestation: My signature below is to certify that this patient is under my care and that I, or nurse practitioner, or a physician's virtual office assistant working with me, has a face-to -face encounter with this patient.
== END 2016-05-13 11:58 | disposition home health service (06) | DRG 436 ==
LOC: 3BNU 09:59 → EMEROO 09:59 → SUATTDRO 12:09 → 3BNU 13:01
PROVIDERS: ADMIT Nurse Practitioner Family; ATTEND Internal Medicine